=== PATIENT | female | born 1970 | race Caucasian/White ===

== ENCOUNTER 2024-12-26 11:39 | Inpatient (IN) | payer MEDICAID, SELFPAY ==
[2024-12-26] VITALS (13 sets, daily range): BP systolic 124–175; BP diastolic 58–94; PULSE 77–110; RESP 16–38; TEMP 36.3–36.5; O2SAT 94–100; BMI 32.3
--- NOTE | ~2024-12-26 | XR_ITS ---
EXAMINATION: XR chest 1V portable DATE: 12/26/2024 12:42 INDICATION: Chronic worsening shortness of breath TECHNIQUE: frontal view of the chest was obtained. COMPARISON: None FINDINGS: The lungs are clear with no focal airspace opacities, pulmonary edema, pleural effusion or pneumothor ax. The cardiomediastinal silhouette is normal. IMPRESSION: 1. No acute cardiopulmonary disease. Reviewed, dictated and finalized at location A.
--- NOTE | ~2024-12-26 | CT_ITS ---
Clinical Indication: Pulmonary embolus CT Scan of the Chest with Contrast: Technique: Contiguous sections were acquired throughout the chest after intravenous administration of 100 cc of Omnipaque 350. Dose reduction technique was used on this scan by utilizing automated expos ure control and iterative reconstruction technique. The dose-length product (DLP) was 279.68 mGy-cm. Findings: There is no evidence of any significant mediastinal, hilar or axillary lymphadenopathy. There is no f illing defect in the pulmonary arterial tree to suggest pulmonary embolus. There is no evidence of ao rtic dissection or aneurysm. There is no evidence of pleural or pericardial effusion. The lungs are clear. No pulmonary nodules or infiltrates are noted. Images through the upper abdomen reveal no abnormalities.. There is multilevel degenerative disc narr owing and multilevel mild loss of height in the mid to lower thoracic spine, suggestive of possible S cheuermann's disease. Impression: No evidence of pulmonary embolus, aortic dissection, or aortic aneurysm. Clear lungs. Osseous findings, as above. Reviewed, dictated and finalized at location . Impression: No evidence of pulmonary embolus, aortic dissection, or aortic aneurysm. Clear lungs. Osseous findings, as above.
--- NOTE | 2024-12-26 11:51 | ECG_ITS ---
Test Date: 2024-12-26 12:07:39 Measurements Intervals [place] Rate: P: 0 CA: 0 QRS: 0 QRSD: 0 T: 0 QT: 0 QTc: 0 Interpretive Statements SINUS RHYTHM WITH VENTRICULAR COUPLET BORDERLINE ST ABNORMALITY- ANTEROLATERAL LEADS BASELINE ARTIFACT- I, II, III, AVR, AVL, AVF BORDERLINE ECG No previous ECG available for comparison Electronically Signed On 12-26-2024 19:22:27 CDT by Kendell Kyle D.O.
[2024-12-26 13:38] LABS: Basophils Absolute Auto 0.1 K/mm3 (0.0-0.1); Basophils Percent Auto 0.4 % (0.2-1.2); Eosinophils Absolute Auto 0.8 K/mm3 (0-0.3); Eosinophils Percent Auto 5.6 % (0-4.4); Hemoglobin 14.6 g/dL (12.0-15.0); Immature Granulocyte Absolute 0.11 K/mm3 (0.00-0.031); Immature Granulocyte Percent A 0.8 % (0-0.5); Lymphocytes Absolute Auto 2.43 K/mm3 (0.9-3.2); Lymphocytes Percent Auto 16.9 % (18.3-44.2); Mean Corpuscular HGB Conc 33.2 g/dl (32-36); Mean Corpuscular Hemoglobin 30.9 pg (26-34); Mean Corpuscular Volume 93.2 fl (80-100); Mean Platelet Volume 12.3 fl (7.4-10.4); Monocytes Absolute Auto 0.8 K/mm3 (0.1-0.6); Monocytes Percent Auto 5.8 % (2.6-8.5); Neutrophils Absolute Auto 10.1 K/mm3 (1.3-6.7); Neutrophils Percent Auto 70.5 % (45.5-73.1); Platelet Count Result 285 k/mm3 (150-375); Red Blood Count 4.72 M/mm3 (4.2-5.4); Red Cell Distribution Width 14.3 % (11.5-14.5); White Blood Count 14.4 K/mm3 (4.5-10.0)
--- NOTE | 2024-12-26 13:43 | ED_ITS ---
HPI - URI/Sore Throat General Chief Complaint: Upper Respiratory Infection Stated Complaint: Coughing, shortness of breath-worse since PM Time Seen by Provider: 12/26/24 11:54 Source: patient Mode of arrival: ambulatory Limitations: no limitations History of Present Illness HPI Narrative: 54 years old white female came with shortness of breath which been going for the last 2 months. Patient is scheduled to be seen by core winding operator this month. Patient from [facility] he came over to visit, shortness of breath got worse 1 week ago, worse with any activity, nothing make it better. Patient is tobacco dependent, hypertension, hyperlipidemia, history of edema lower extremities. Currently on Lasix. She denies any fever, chills, nausea, vomiting. Related Data Home Medications ?Medication ?Instructions ?Recorded ?Confirmed ?Last Taken ?Type albuterol 90 mcg/actuation aerosol 90 mcg inhalation QID PRN 12/26/24 12/26/24 12/26/24 History inhaler shortness of breath benzonatate 100 mg capsule 100 mg PO TID PRN cough 12/26/24 12/26/24 12/26/24 History ibuprofen 800 mg tablet (IBU) 800 mg PO TID PRN pain 12/26/24 12/26/24 12/26/24 History levothyroxine 112 mcg tablet 112 mcg PO DAILY 12/26/24 12/26/24 12/26/24 History (Euthyrox) Allergies Allergy/AdvReac Type Severity Reaction Status Date / Time No Known Allergies Allergy Verified 12/26/24 11:42 Review of Systems 2 Review of Systems: All systems reviewed & are unremarkable except as noted in HPI and below PMFSH Social History Social History Smoking status: Current every day smoker Tobacco type: cigarettes Alcohol intake: never Substance use: never Substance use type: does not use Do You Feel Safe in your Home?: Yes Lack of Transportation: No Lack of Food: Never True Current Housing: I Have Housing Concerned About Future Housing: No Difficulty Paying Gas/Electric Bills: No Difficulty Paying for Meds: No Currently Unemployed: No Education: Grade School Difficulty w/ Childcare or Family Care: No Spiritual care concerns: No Exam 2 Narrative: General appearance: Well-developed, well-nourished Skin: Normal color Head: Normocephalic, nontraumatic Eyes: Clear conjunctiva ENT: Oropharynx normal, ears normal, nose normal Neck: Supple, nontender Chest and respiratory: Airway patent, labored breathing, diminution of air entry bilaterally, scattered wheezing and rhonchi bilaterally Heart: Tachycardia Abdomen: Soft, nontender, no organomegaly, quiet bowel sounds Vascular: Normal peripheral pulses, normal capillary refill. Musculoskeletal: Normal range of motion, nontender back Neurologic: Alert and oriented ?3, INTERIOR DESIGN PROJECT MANAGER is normal as tested, no gross motor deficit Course Vital Signs Vital signs: Vital Signs Temperature 36.3 C L 12/26/24 12:00 Pulse Rate 82 12/26/24 12:00 Respiratory Rate 16 12/26/24 12:00 Blood Pressure 150/70 H 12/26/24 12:00 Pulse Oximetry 96 12/26/24 12:00 Oxygen Delivery Room Air 12/26/24 12:00 Temperature 36.3 C L 12/29/24 04:57 Pulse Rate 76 12/29/24 08:00 Respiratory Rate 16 12/29/24 08:00 Blood Pressure 126/61 12/29/24 04:57 Pulse Oximetry 97 12/29/24 08:00 Oxygen Delivery Room Air 12/29/24 08:00 Oxygen Flow Rate 2 12/26/24 17:02 Fraction of Inspired Oxygen 21 12/29/24 08:00 MDM - URI/Sore Throat MDM Narrative Medical decision making narrative: Patient presents with shortness of breath, Vital signs are stable Physical examination showing a patient with labored breathing, diminution of air entry bilaterally scattered rhonchi and wheezing bilaterally Differential diagnosis include asthma exacerbation, COPD exacerbation, congestive heart failure, pneumonia, pleural effusion Blood workup today includes CBC, CMP, troponin, pro BMP showed WBC 14.4, otherwise within normal limit Chest x-ray showed no acute abnormalities EKG on arrival showed normal sinus rhythm at 85 beats per minute, nonspecific ST T-wave abnormality Diagnosis: COPD exacerbation Admit to hospitalist Medical Records Attestation: I reviewed the patient's medical records. Lab Data Attestation: I reviewed the patient's lab results. 12/29/24 04:42 12/29/24 04:42 Labs: Lab Results 12/26/24 12/26/24 12/27/24 Range/Units 13:32 14:08 04:27 WBC 14.4 H 24.9 H (4.5-10.0) K/mm3 RBC 4.72 4.80 (4.2-5.4) M/mm3 Hgb 14.6 14.8 (12.0-15.0) g/dL Hct 44.0 45.5 (37.0-47.0) % MCV 93.2 94.8 (80-100) fl MCH 30.9 30.8 (26-34) pg MCHC 33.2 32.5 (32-36) g/dl RDW 14.3 14.1 (11.5-14.5) % Plt Count 285 294 (150-375) k/mm3 MPV 12.3 H 13.7 H (7.4-10.4) fl Immature Gran % (Auto) 0.8 H (0-0.5) % Neut % (Auto) 70.5 (45.5-73.1) % Lymph % (Auto) 16.9 L (18.3-44.2) % [place] % (Auto) 5.8 (2.6-8.5) % Eos % (Auto) 5.6 H (0-4.4) % Baso % (Auto) 0.4 (0.2-1.2) % Lymph # (Auto) 2.43 (0.9-3.2) K/mm3 [place] # (Auto) 0.8 H (0.1-0.6) K/mm3 Eos # (Auto) 0.8 H (0-0.3) K/mm3 Baso # (Auto) 0.1 (0.0-0.1) K/mm3 Abs Immat Gran (auto) 0.11 H (0.00-0.031) K/mm3 Absolute Neuts (auto) 10.1 H (1.3-6.7) K/mm3 Absolute Nucleated RBC 0.000 (0.0-0.012) K/mm3 Nucleated RBC % 0.0 (0.0-0.2) % % Immature Plt Fraction 15.3 H (0.9-11.2) % PT 12.5 (11.1-14.7) Seconds INR 0.9 APTT 27.9 (22.3-36.8) Seconds D-Dimer 0.45 (<0.48) ug/mL Sodium 139 (137-145) mmol/L Potassium 4.2 (3.4-5.0) mmol/L Chloride 106 (98-107) mmol/L Carbon Dioxide 26 (22-30) mmol/L Anion Gap 7 (4-12) mmol/L BUN 8 (7-17) mg/dL Creatinine 0.59 L (0.7-1.0) mg/dL Estim Creat Clear Calc Not Reportable Estimated GFR > 60 (59 - ) Glucose 108 (65-110) mg/dL Calcium 9.4 (8.4-10.2) mg/dL Magnesium 1.9 (1.6-2.3) mg/dL Total Bilirubin 0.5 0.2 (0.2-1.3) mg/dL Direct Bilirubin 0.0 (0-0.3) mg/dL AST 27 31 (14-36) U/L ALT 27 36 H (6-35) U/L Alkaline Phosphatase 100 96 (38-126) U/L Troponin I < 0.012 (0.000-0.034) ng/mL NT-Pro-B Natriuret Pep 73 (19.9-100) pg/mL Total Protein 8.0 8.0 (6.3-8.2) g/dL Albumin 4.3 4.3 (3.5-5.1) g/dL Influenza A (RT-PCR) Negative (Negative) Influenza B (RT-PCR) Negative (Negative) RSV (RT-PCR) Negative (Negative) SARS-CoV-2 RNA (RT-PCR) Negative (Negative) 12/27/24 12/28/24 Range/Units 04:30 04:45 WBC 34.7 H (4.5-10.0) K/mm3 RBC 4.16 L (4.2-5.4) M/mm3 Hgb 12.9 (12.0-15.0) g/dL Hct 40.0 (37.0-47.0) % MCV 96.2 (80-100) fl MCH 31.0 (26-34) pg MCHC 32.3 (32-36) g/dl RDW 14.4 (11.5-14.5) % Plt Count 274 (150-375) k/mm3 MPV 13.1 H (7.4-10.4) fl Immature Gran % (Auto) (0-0.5) % Neut % (Auto) (45.5-73.1) % Lymph % (Auto) (18.3-44.2) % [place] % (Auto) (2.6-8.5) % Eos % (Auto) (0-4.4) % Baso % (Auto) (0.2-1.2) % Lymph # (Auto) (0.9-3.2) K/mm3 [place] # (Auto) (0.1-0.6) K/mm3 Eos # (Auto) (0-0.3) K/mm3 Baso # (Auto) (0.0-0.1) K/mm3 Abs Immat Gran (auto) (0.00-0.031) K/mm3 Absolute Neuts (auto) (1.3-6.7) K/mm3 Absolute Nucleated RBC (0.0-0.012) K/mm3 Nucleated RBC % (0.0-0.2) % % Immature Plt Fraction 14.0 H (0.9-11.2) % PT (11.1-14.7) Seconds INR APTT (22.3-36.8) Seconds D-Dimer (<0.48) ug/mL Sodium 138 140 (137-145) mmol/L Potassium 3.9 3.8 (3.4-5.0) mmol/L Chloride 100 107 (98-107) mmol/L Carbon Dioxide 28 24 (22-30) mmol/L Anion Gap 10 9 (4-12) mmol/L BUN 17 17 (7-17) mg/dL Creatinine 0.70 0.73 (0.7-1.0) mg/dL Estim Creat Clear Calc Not Reportable Not Reportable Estimated GFR > 60 > 60 (59 - ) Glucose 238 H 126 H (65-110) mg/dL Calcium 9.9 9.0 (8.4-10.2) mg/dL Magnesium (1.6-2.3) mg/dL Total Bilirubin 0.2 (0.2-1.3) mg/dL Direct Bilirubin (0-0.3) mg/dL AST 23 (14-36) U/L ALT 26 (6-35) U/L Alkaline Phosphatase 77 (38-126) U/L Troponin I (0.000-0.034) ng/mL NT-Pro-B Natriuret Pep (19.9-100) pg/mL Total Protein 7.0 (6.3-8.2) g/dL Albumin 4.0 (3.5-5.1) g/dL Influenza A (RT-PCR) (Negative) Influenza B (RT-PCR) (Negative) RSV (RT-PCR) (Negative) SARS-CoV-2 RNA (RT-PCR) (Negative) Imaging Data Radiologist's impression: Impressions Chest X-Ray 12/26/24 12:58 IMPRESSION: 1. No acute cardiopulmonary disease. ECG Data EKG #1: Attestation: I personally reviewed and interpreted this ECG as follows: ECG completion date: 12/26/24 Interpretation: Normal sinus rhythm at 85 beats per minute, otherwise normal EKG Critical Care Time Critical Care Time Critical Care Time: No Discharge Plan Discharge Clinical Impression: COPD (chronic obstructive pulmonary disease) Patient Disposition: Still a Patient Condition: Stable
[2024-12-26 13:48] LABS: Alanine Aminotransferase 27 U/L (6-35); Albumin Level 4.3 g/dL (3.5-5.1); Alkaline Phosphatase 100 U/L (38-126); Anion Gap 7 mmol/L (4-12); Aspartate Amino Transferase 27 U/L (14-36); Bilirubin,Total 0.5 mg/dL (0.2-1.3); Blood Urea Nitrogen 8 mg/dL (7-17); Calcium 9.4 mg/dL (8.4-10.2); Carbon Dioxide 26 mmol/L (22-30); Chloride 106 mmol/L (98-107); Estimated Glomerular Filt Rate > 60; Glucose 108 mg/dL (65-110); Potassium 4.2 mmol/L (3.4-5.0); Sodium 139 mmol/L (137-145)
[2024-12-26] MEDS: methylPREDNISolone SOD SUCC 125 MG VIAL IV PUSH (14:12)
[2024-12-26 14:13] LABS: NT Pro B Type Natriuretic Pept 73 pg/mL (19.9-100); Troponin I < 0.012 ng/mL (0.000-0.034)
[2024-12-26] MEDS: FUROSEMIDE INJ 40 MG/4 ML VIAL IV PUSH (14:13)
[2024-12-26] MEDS: IPRATROPIUM BR 0.02% INH SOLN 0.5 MG/2.5 ML VIAL 1 MG INHALATION (14:20)
[2024-12-26] MEDS: ALBUTEROL SULFATE NEB 2.5 MG/3 ML INH 10 MG INHALATION (14:20)
--- NOTE | 2024-12-26 14:22 | PC.NURSE ---
Pt refused to wear bipap. ERP aware.
[2024-12-26 14:33] LABS: Magnesium 1.9 mg/dL (1.6-2.3)
[2024-12-26 14:37] LABS: INR 0.9; Prothrombin Time 12.5 Seconds (11.1-14.7)
[2024-12-26 14:38] LABS: Partial Thromboplastin Time 27.9 Seconds (22.3-36.8)
[2024-12-26 14:41] LABS: D Dimer 0.45 ug/mL (<0.48)
[2024-12-26 14:47] LABS: Influenza A QL RT-PCR Negative (Negative); Influenza B QL RT-PCR Negative (Negative); RSV RNA, RT-PCR Negative (Negative); SARS-CoV-2 RNA PCR Negative (Negative)
[2024-12-26] MEDS: NICOTINE (*PBKC) 21 MG PATCH 1 PATCH TRANSDERM (15:50)
--- NOTE | 2024-12-26 17:45 | ADMGEN ---
This patient, Kanwal Stearns, was admitted to Medical Room 242-. Patient/family oriented to hospital policies and general routines including ID bracelet, bed and alarms, visiting hours, pain management, procedures, bathroom and other care routines, personal items, smoking policy, room service/diet, and visiting hours. Information on how to activate the Rapid Response Team has been discussed. Patient/Family are encouraged to report perceived risks to care and to ask questions if they do not understand what they are told or what they should do.
--- OUTSIDE RECORDS SUMMARY | 2024-12-26 18:01 | XMS_ITS | Continuity of Care Document ---
Author Organization [facility] Address [address] [place] [address] Phone Care Team Providers Care Client Relation Specialist Name Role Phone Unavailable Unavailable Unavailable Medications Medication Instructions Dosage Effective Dates (start - stop) Status Comments metronidazole 500 mg Tab FLAGYL 500 MG TABLET<><> 1 TAB by mouth (PO) twice a day.<><> As directed by physician.<> Avoid alcohol.<><>DISPENS E: <>REFILLS: 0<>Provider: LYDIA AGUERO NP<> SIGNATURE ON FILE <><> PLEASE HOLD FOR - Active nicotine 21 mg/24 hr daily Patch NICOTINE 21 MG/24HR PATCH # 30<><> apply to scalp once a day.<><> As directed by physician.<><>DISPE NSE: 30 day supply.<>REFILLS: 0<>Provider: LYDIA AGUERO NP<> SIGNATURE ON FILE <><> PLEASE HOLD F - Active Zoloft 25 mg Tab ZOLOFT 25 MG TABLET<><> 1 TAB by mouth (PO) every day.<><><>DISPENSE: 30 day supply.<>REFILLS: 4<>Provider: PRATIMA CAPPS NP<>Health [facility]: [facility]<><> - No Longer Active Procedures Procedure Date CYTP C/V AUTO THIN LYR PREPJ SCR SYS PHY S CHYLMD TRACH, DNA, AMP PROBE ANTIBODY; HIV-1 URNLS DIP STICK/TABLET RGNT AUTO W/O MORGAN PERIODIC COMPREHENSIVE PREVENTIVE MED RE E/M; ESTABLISHED PATIENT; 18-39 CULTURE, BACTERIAL; QUANTITATIVE COLONY COUNT, URINE LIPID PANEL N.GONORRHOEAE, DNA, AMP PROB SYPHILIS TEST; QUALITATIVE (EG, VDRL, RP R, ART) Debridement, Full Mouth Comprehensve oral evaluation Oral hygiene instruction Dental bitewings two films OFFICE OUTPT EST 10 MIN CYTP C/V AUTO THIN LYR PREPJ SCR SYS PHY S N.GONORRHOEAE, DNA, AMP PROB HEPATITIS C ANTIBODY; IAAD EIA HEP B SURF AG ANTIBODY; HIV-1 AND HIV-2, SINGLE ASSAY PERIODIC COMPREHENSIVE PREVENTIVE MED RE E/M; ESTABLISHED PATIENT; 1839 CHYLMD TRACH, DNA, AMP PROBE COLLECTION OF VENOUS BLOOD BY VENIPUNCTU RE SYPHILIS TEST; QUALITATIVE (EG, VDRL, RP R, ART) OFFICE OUTPT EST 10 MIN IAAD EIA HEP B SURF AG SYPHILIS TEST; QUALITATIVE (EG, VDRL, RP R, ART) CYTP SLIDES C/V MNL SCR PHYS CHYLMD TRACH, DNA, AMP PROBE HEPATITIS C ANTIBODY; GONADOTROPIN; FOLLICLE STIMULATING HORMO NE (FSH) N.GONORRHOEAE, DNA, AMP PROB OFFICE OUTPT EST 10 MIN Results Test Name Date and Time Measure Units Reference Range Abnormal Flag Status Comments Panel Description: SUREPATH RFX HPV Final REPORT STATUS: 2007 09:42:0 0 FINAL Final CLINICAL INFORMATION: 2007 09:42:0 0 Final LMP: 2007 09:42:0 0 Final NA PREV. PAP: 2007 09:42:0 0 Final NA PREV. BX: 2007 09:42:0 0 Final NA SOURCE: 2007 09:42:0 0 Final Cervix, Endocervix STATEMENT OF ADEQUACY: 2007 09:42:0 0 Final Satisfactory f or evaluation.Endoce rvical/transforma tion zone componentpresent. Age and/or menstrual status not provided INTERPRETATION/R ESULT: 2007 09:42:0 0 Final Negative for intraepithelial lesion or malignancy. COMMENT: 2007 09:42:0 0 Final Based on the cytology result, reflex High RiskHPV DNA testing was not performed. SLD EDUCATIONAL AIDE : 2007 09:42:0 0 Final PONCE, CT(ASCP) REVIEW SLD EDUCATIONAL AIDE : 2007 09:42:0 0 Final MLK, CT(ASCP) Panel Description: LIPID PANEL Final TRIGLYCERIDES 2007 19:40:0 0 113 mg/dL <150 N Final Panel Description: Not Available Final CHOLESTEROL, TOTAL 2007 19:40:0 0 228 mg/dL 125-200 H Final Panel Description: Not Available Final HDL CHOLESTEROL 2007 19:40:0 0 57 mg/dL > OR = 40 N Final Panel Description: Not Available Final LDL-CHOLESTEROL 2007 19:40:0 0 148 mg/dL (calc) <130 H Final DESIRABLE RANGE <100 MG/DL FOR PATIENTS WITH CHD ORDIABETES AND <70 MG/DL FOR DIABETIC PATIENTS WITHKNOWN HEART DISEASE. Panel Description: Not Available Final CHOL/HDLC RATIO 2007 19:40:0 0 4.0 (calc) < OR = 5.0 N Final Panel Description: CHLAMYDIA/N. GONORRHOEAE RNA, TMA Final C. TRACHOMATIS RNA, TMA 2007 19:40:0 0 Not Detected Final Reference range : Not Detected N. GONORRHOEAE RNA, TMA 2007 19:40:0 0 Not detected Final Reference range : Not Detected Panel Description: HIV 1/2 EIA ANTIBODY SCREEN W /REFLEXES Final HIV 1/2 EIA AB SCREEN 2007 19:40:0 0 NON-REACTI VE NON-REACTIV E N Final A NON-REACTIVE HIV 1/2 ANTIBODY RESULT DOES NOT EXCLUDE HIV INFECTION SINCE THE TIME FRAME FOR SEROCONVERSION IS VARIABLE. IF ACUTE HIV INFECTION IS SUSPECTED, ANTIBODY RETESTING AND NUCLEIC ACID AMPLIFICATION (HIV DNA/RNA) TESTING IS RECOMMENDED. Panel Description: RPR (DX) W/REFL TITER AND CONFIRMATORY TESTING Final RPR (DX) W/REFL TITER AND CONFIRMATORY TESTING 2007 19:40:0 0 NON-REACTI VE NON-REACTIV E N Final Advance Directives Directive Yes / No Effective Date File Name No Information Encounters Encounter Description Practice Location Reason(s) For Visit Diagnoses Date Provider Providers Copied on Encounter [facility], [address], [place], [place], [id number] , [place] tel: [phone] No Information 2 8 No Information PERIODIC COMPREHENSIVE PREVENTIVE MED REE/M; ESTABLISHED PATIENT; 18-39 [facility], [address], [place], [place], [address] , [place] tel: [phone] [facility] ROUTINE INSTRUMENT TESTER EXAMINATIONVAGIN ITIS NOS 2- 8 No Information [facility], [address], [place], [place], [address] , [place] tel: [phone] [facility] DENTAL EXAMINATION 4-200 8 No Information OFFICE OUTPT EST 10 MIN [facility], [address], [place], [place], [id number] , [place] tel: [phone] [facility] OSTEOPOROSIS NOS -200 7 No Information PERIODIC COMPREHENSIVE PREVENTIVE MED REE/M; ESTABLISHED PATIENT; 18-39 [facility], [address], [place], [place], [address] , [place] tel: [phone] [facility] ROUTINE INSTRUMENT TESTER EXAMINATION 6-200 7 No Information OFFICE OUTPT EST 10 MIN [facility], [address], [place], [place], [address] , [place] tel: [phone] [facility] VAGINITIS NOSOSTEOPOROSIS NEC 5-200 6 No Information OFFICE OUTPT EST 10 MIN [facility], [address], [place], [place], [address] , [place] tel: [phone] [facility] ROUTINE INSTRUMENT TESTER EXAMINATION 1-200 6 No Information Family History Family Member Type Diagnosis Age At Onset No Information Payers Payer name Insurance type Covered constitution party ID Authoriza tion(s) No Information Social History Type Description Quantity Date Captured Comments Sex Female Smoking Status No Information Chief Complaint And Reason For Visit No Information Reason For Referral Reason For Referral No Information History Of Present Illness Encounter Date Complaint History Of Prese nt Illness No Information Functional Status Date Functional Assessmen t No Information Instructions Date Instruction Additional Infor mation No Information Assessments Type Assessment Date No Information Patient Care Teams Name Effective Dates (start - stop) Status Members No Information
--- OUTSIDE RECORDS SUMMARY | 2024-12-26 18:01 | XMS_ITS | Patient Health Record ---
Author Organization [facility] Address [address] [place] [address] Care Team Providers Care Millwright Apprentice Name Role Phone Luigi Cristy REESE Primary Care Provider Evelyn ho Reason For Referral No Information Plan Of Treatment No Information Insurance Providers Payer Name Payer Address Payer Phone Subscriber Number Group Number Insured Name Patient Relationship to Insured Coverage Start Date Coverage End Date [employer] [facility] [address] [place] [address] [id number] AMANDA SALDANA Self - patient is the insured
--- OUTSIDE RECORDS SUMMARY | 2024-12-26 18:01 | XMS_ITS ---
Author Organization [facility] Address [address] [place] [address] Care Team Providers Care Fur Cutting Machine Operator Name Role Phone Luigi HUGH Cristy Primary Care Provider Augusto Yun Unavailable [phone] REASON FOR VISIT declined Encounters Encounter Location Date Provider Diagnosis [facility] [address] [place] [address] 09/03/2023 Augusto Leija Plan Of Treatment No Information Progress Notes * SHANA, AMANDADOB: [birth year] (53 yo F)Acc No.[id number]:09/03/2023 Patient: AMANDA FIGUEROA :1970 A ge:53 Y S ex:Female Address:[address] [place] [id number] * true * Date: Generated for Levon barone/Leo/eTransmitting on: 0 12/26/2024 06:01 PM CDT
--- OUTSIDE RECORDS SUMMARY | 2024-12-26 18:01 | XMS_ITS | Clinical Summary ---
Author Organization [facility] Address [address] [place] [address] Care Team Providers Care Retail Experience Specialist Name Role Phone Cristy Meyers SUSPECT ARTIST SUPERVISOR-STARBUCKS CLERK Primary Care Provider Source Comments [facility]non-owned Affiliates and Associated Physician Practices is amultiple site organization consisting of ambulatory clinics and hospital sitesin [place], [place], [place] and [place]. This disclosure is being madepursuant to the Care Everywhere program and may not contain all information available regarding this patient. Last updated 18.[facility] Allergies No known active allergies Medications * Be aware that medications may not be up to date on this document. Alwaysverify current medications with the patient. albuterol HFA (PROVENTIL;PONCE TOLIN;PROAIR) 108 (90 BASE) MCG/ACT inhaler Inhale 2 Puffs by mouth every 4 hours as needed for Shortness of Breath or Wheezing 1 Inhaler 1 7 Active acetaminophen (TYLENOL) 325 MG tablet Take 2 tablets by mouth every 4 hours as needed Maximum allowable Acetaminophen amount = 4 Grams (4000 mg) / 24 hours. 8 Active Aspirin-Acetam inophen-Caffei ne (EXCEDRIN PO) Take 2 tablets by mouth once daily as needed Active levothyroxine (SYNTHROID) 150 MCG tabletIndicati ons:Hypothyroi dism due to acquired atrophy of thyroid Take 1 tablet by mouth once daily Start on 06/16/19 90 tablet 3 9 Active Hospital, Clinic, or Other Facility Administered Medication Ordered Dose Route Frequency Start Date End Date Status cyanocobalamin (VITAMIN B-12) injection 1,000 mcgIndications:Vitamin B12 deficiency 1000 mcg IM EVERY 7 DAYS 11/26/2017 Active Active Problems Problem Noted Date Diagnosed Date Overweight (BMI 25.0-29.9) 08/04/2019 Vitamin B12 deficiency 12/02/2018 Vitamin D deficiency 12/02/2018 Hypothyroidism 05/22/2018 Anemia 05/22/2018 Idiopathic pericardial effusion 09/12/2017 Assessment & Plan (09/12/2017 12:02 PM BELT WEAVER): Sp pericardiocentesis. 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 (A FLURIA, FLUZONE QUADRIVALENT; 6MO+) (IIV4) 05/22/2018 INFLUENZA VACCINE, QUADR. (F LUZONE; FLULAVAL; FLUARIX; AFLURIA QUADRIVALENT; 6MO+), 0.5 ML (IIV4) 06/29/2019 PNEUMOCOCCAL PPSV23 06/29/2019 Pneumococcal Pcv13 Conj 05/22/2018 TD VACCINE 12/08/2014 Family History Medical History Relation Name Comments Negative Family History Brother 1 ADHD Father Alcohol abuse Father Other Father pancreas diseas e Negative Family History Mother Negative Family History Sister Cancer - Breast Neg Hx Relation Name Status Comments Brother 1 Alive Brother 2 Alive Brother 3 Alive Brother 4 Alive Father Mother Alive Sister Social History Tobacco Use Types Packs/Day Years Used Date Smoking Tobacco: Every Day Cigarettes 0.5 39.3 Started: 09/12/1985 Smokeless Tobacco: Never Tobacco Cessation:Counseling Given: No Alcohol Use Standard Drinks/Week Comments No 0 (1 standard drink = 0.6 oz pur e alcohol) Comments No Sex and Gender Information Value Date Recorded Sex Assigned at Not on file Legal Sex Female 5:20 PM CDT Gender Identity Not on file Sexual Orientation Not on file Last Filed Vital Signs Vital Sign Reading Time Taken Comments Blood Pressure 102/64 09/29/2019 3:13 PM BELT WEAVER Pulse 68 09/29/2019 3:13 PM BELT WEAVER Temperature 36.6 C (97.9 F) 09/29/2019 3:13 PM BELT WEAVER Respiratory Rate 16 09/29/2019 3:13 PM BELT WEAVER Oxygen Saturation 97% 09/29/2019 3:13 PM BELT WEAVER Inhaled Oxygen Concentration - - Weight 53.7 kg (118 lb 6 oz) 09/29/2019 3:13 PM BELT WEAVER Height 144.8 cm (4' 9) 09/29/2019 3:13 PM BELT WEAVER Body Mass Index 25.62 09/29/2019 3:13 PM BELT WEAVER Plan of Treatment Health Maintenance Due Date Last Done Comments COLOGUARD (AGES 45-75) - COLON CA SCREENING 1972 COLON MONITORING 1972 COLONOSCOPY - COLON CA SCREENING 1972 CT COLONOGRAPHY - COLON CA SCREENING 1972 Colorectal Cancer Screening 1972 FIT - COLON CA SCREENING 1972 FLEX SIG - COLON CA SCREENING 1972 HIV SCREENING 1987 HEPATITIS C SCREENING 06/01/1990 HEPATITIS B VACCINE (1 of 3 - 19+ 3-dose series) 1991 SCREENING FOR DIABETES 04/14/2022 9, 11/03/2017, 09/13/2017, Additional history exists ZOSTER VACCINE (1 of 2) 2022 MAMMOGRAM 09/13/2022 09/13/2020 LIPID TESTING 11/03/2022 11/03/2017 COVID-19 VACCINE ( - season) 2024 PNEUMOCOCCAL VACCINE 50+ (3 of 3 - PCV20 or PCV21) 06/29/2024 06/29/2019, 05/22/2018 DEPRESSION SCREENING 07/28/2024 DTAP/TDAP/TD VACCINES (2 - Td or Tdap) 12/08/2024 12/08/2014 INFLUENZA VACCINE (Season Ended) 2025 06/29/2019, 05/22/2018 HIB VACCINE Aged Out No longer eligi ble based on patient's age to complete this topic HPV VACCINE Aged Out No longer eligi ble based on patient's age to complete this topic MENINGOCOCCAL (Group B) VACCINE SHARED DECISION-MAKING Aged Out No longer eligible based on patient's age to complete this topic MENINGOCOCCAL GROUPS A/C/Y/W VACCINE Aged Out No longer eligible based on patient's age to complete this topic Procedures Procedure Name Priority Date/Time Associated Diagnosis Comments MAMMO BILAT DIAGNOSTIC Routine 10:02 AM BELT WEAVER Breast pain COMPREHENSIVE METABOLIC PANEL STAT 04/14/2019 8:05 PM CDT LIPID PROFILE Routine 11/03/2017 9:42 AM CDT Epigastric pain Toney syndrome Tobacco abuse 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 Enlarged thyroid from Last 3 Months or Most Recently Relevant to Health Maintenance Results * MAMMO BILAT DIAGNOSTIC (09/13/2020 10:02 AM BELT WEAVER) Anatomical Region Laterality Modality Breast Bilateral Mammography 09/13/2020 10:0 7 AM BELT WEAVER Narrative 09/13/2020 10:14 AM BELT WEAVER DIGITAL BILATERAL DIAGNOSTIC MAMMOGRAMS WITH CAD 3-D TOMOSYNTHESIS DATE: 09/13/2020 PREVIOUS EXAM DATE: 04/27/2014, 04/01/2013, 12/30/2011 INDICATION: Lateral right breast pain TECHNIQUE:Bilateral CC and MLO with 3-D digital tomosynthesis, right ML with 3-D tomosynthesis, right X CCM, left inferior MLO CAD was utilized. TECHNOLOGIST: ESM TISSUE DENSITY:The breasts are heterogeneously dense, which may obscure small masses. FINDINGS:No suspicious masses or microcalcifications are seen. No suspicious new findings have developed since prior examination. ASSESSMENT:Negative, BI-RADS 1. RECOMMENDATIONS:Continue screening mammography on schedule Clinical follow-up The above findings should be correlated with physical examination. A relatively nonspecific study should not preclude additional evaluation if suspicious findings are present clinically. An [employer] [facility] utilizes [employer] as a reminder system to notify patients of their next recommended mammogram. us Cristy Meyers SUSPECT ARTIST SUPERVISOR-STARBUCKS CLERK MAMMO ORDERABLES Final Result * (ABNORMAL) COMPREHENSIVE METABOLIC PANEL (04/14/2019 8:05 PM CDT) Sodium 142 136 - 145 mmol/L 04/14/2019 8:37 PM CDT [facility] Potassium 3.7 3.5 - 5.1 mmol/L 04/14/2019 8:37 PM CDT [facility] Chloride 104 98 - 107 mmol/L 04/14/2019 8:37 PM CDT [facility] CO2 27 22 - 29 mmol/L 04/14/2019 8:37 PM CDT [facility] Anion Gap 11 9 - 16 mmol/L 04/14/2019 8:37 PM T [facility] Glucose 91 70 - 105 mg/dL 04/14/2019 8:37 PM T [facility] BUN 12 9.8 - 20.1 mg/dL 04/14/2019 8:37 PM T [facility] Creatinine 0.87 0.57 - 1.11 mg/dL 04/14/2019 8:37 PM T [facility] BUN/Creatinine Ratio 13.8 11.2 - 18.1 04/14/2019 8:37 PM T [facility] Calcium 9.7 8.4 - 10.2 mg/dL 04/14/2019 8:37 PM T [facility] Protein Total 7.6 6.4 - 8.3 gm/dL 04/14/2019 8:37 PM T [facility] Albumin 4.2 3.5 - 5.0 gm/dL 04/14/2019 8:37 PM T [facility] ALT 16 0 - 55 U/L 04/14/2019 8:37 PM T [facility] AST 15 5 - 34 U/L 04/14/2019 8:37 PM T [facility] Alkaline Phosphatase 76 40 - 150 U/L 04/14/2019 8:37 PM T [facility] Bilirubin Total 0.1(L) 0.2 - 1.2 mg/dL 04/14/2019 8:37 PM T [facility] Calcium Adjusted 9.54 8.4 - 10.2 mg/dL 04/14/2019 8:37 PM CDT [facility] Globulin Total 3.4 1.3 - 4.7 gm/dL 04/14/2019 8:37 PM T [facility] Albumin/Globulin Ratio 1.2 1.1 - 2.2 04/14/2019 8:37 PM CDT [facility] Osmolality Calculated 273 260 - 284 mOsm/kg 04/14/2019 8:37 PM CDT [facility] eGFR by MDRD >60 >60 mL/min/1.7 3m2 04/14/2019 8:37 PM CDT [facility] eGFR by MDRD >60 >60 mL/min/1.7 3m2 04/14/2019 8:37 PM CDT [facility] Blood BLOOD SPECIMEN / Unknown Venipuncture / Unknown 04/14/2019 8:05 PM CDT 04/14/2019 8:05 PM CDT Narrative [facility] - 04/14/2019 8:37 PM CDT ADA Comment: The [place] [employer] recommends a fasting glucose concentration of 99 mg/dL as the upper limit of normal. Note:EGFR Reference Ranges have been established for adults between the ages of 18 and 70. STAGES OF CHRONIC KIDNEY DISEASE Stage Description EGFR 1. Kidney damage with normal or increased EGFR > or =90 mL/min/1.73 m 2. Kidney damage with mildly decreased EGFR 60-89 mL/min/1.73 m 3. Moderately decreased EGFR 30-59 mL/min/1.73 m 4. Severely decreased EGFR 15-29 mL/min/1.73 m 5. Kidney Failure EGFR <15 mL/min/1.73 m us Miriam Almeida MD LAB - CHEMISTRY ORDERABLES Final Result [facility] [address] [phone] * LIPID PROFILE (11/03/2017 9:42 AM CDT) Pathologist [facility] Cholesterol 186 <200 mg/dL 11/03/2017 10:47 AM CDT [facility] Triglycerides 107 <150 mg/dL 11/03/2017 10:47 AM CDT [facility] VLDL Calculated 21 <31 mg/dL 8 10:47 AM CDT [facility] HDL Cholesterol 45 >40 mg/dL 8 10:47 AM CDT [facility] LDL Calculated 120 <160 mg/dL 11/03/2017 10:47 AM CDT [facility] Blood BLOOD SPECIMEN / Unknown Lab Venipuncture / Unknown 11/03/2017 9:42 AM CDT 11/03/2017 9:46 AM CDT Narrative [facility] - 11/03/2017 10:47 AM CDT Lipid Profile Comment: *Risk Factors modify LDL Goals. Below is the desirable LDL goal for each combination of risk factors. 0-1 Risk Factor <160 mg/dL Multiple (2+) Risk Factors <130 mg/dL CHD or other forms of atherosclerosis <100 mg/dL Diabetes <100 mg/dL Note: This test is for fasting patients only. A non-fasting state may alter some of these results. us Demetrio DOWD LAB - CHEMISTRY ORDERABLE S Final Result [facility] [address] [place], [place] [address] [phone] from Last 3 Months or Most Recently Relevant to Health Maintenance Insurance [employer] Advance Directives * Full Code (Latest Code Status on File) Date Activated Date Inactivated Comments 09/12/2017 1:53 PM 09/13/2017 3:37 PM Care Teams Retail Experience Specialist Relationship Specialty Start Date End Date Cristy Meyers APRN-CNP PCP - General Nurse Practitioner 09/13/20
--- OUTSIDE RECORDS SUMMARY | 2024-12-26 18:02 | XMS_ITS ---
Author Organization [facility] Network Address [id number] [place] [address] Care Team Providers Care Supervisor Beet End Name Role Phone Luigi REESE-Cristy HANNAH Primary Care Physician Cristy Meyers Attending Clinician [phone] Marlon Weller Attending Clinician [phone] Max Arauz Attending Clinician [phone] Jackie Inman Attending Clinician [phone] Jackie Inman Attending Clinician [phone] Bhaskar Barreto Attending Clinician [phone] Olman Hoyt Attending Clinician [phone] Nilda Petersen Attending Clinician [phone] Oneila Foster Attending Clinician [phone] Problems Condition Name Condition Details Condition Category Status Onset Date Resolution Date Last Treatment Date Treating Clinician Comments Body mass index [BMI] 32.0-32.9, adult Body mass index [BMI] 32.0-32.9, adult Diagnosis interpreta tion (observabl e entity) 04-12 00:00: 00 2024-04-12 00:00:00 Body mass index [BMI] 32.0-32.9, adult Body mass index [BMI] 32.0-32.9, adult Diagnosis interpreta tion (observabl e entity) 03-25 00:00: 00 2024-03-25 00:00:00 Body mass index [BMI] 32.0-32.9, adult Body mass index [BMI] 32.0-32.9, adult Diagnosis interpreta tion (observabl e entity) - 00:00: 2023-12-30 00:00:00 Body mass index [BMI] 32.0-32.9, adult Body mass index [BMI] 32.0-32.9, adult Diagnosis interpreta tion (observabl e entity) 11-24 00:00: 00 2023-11-25 00:00:00 Major depressive disorder, recurrent, mild Major depressive disorder, recurrent, mild Diagnosis interpreta tion (observabl e entity) 11-24 00:00: 00 2023-11-25 00:00:00 Body mass index [BMI] 32.0-32.9, adult Body mass index [BMI] 32.0-32.9, adult Diagnosis interpreta tion (observabl e entity) 09-23 00:00: 00 2023-09-23 00:00:00 Essential (primary) hypertensio n Essential (primary) hypertensio n Diagnosis interpreta tion (observabl e entity) 09-23 00:00: 00 2023-09-23 00:00:00 Body mass index [BMI] 32.0-32.9, adult Body mass index [BMI] 32.0-32.9, adult Diagnosis interpreta tion (observabl e entity) 08-21 00:00: 00 2023-08-21 00:00:00 Essential (primary) hypertensio n Essential (primary) hypertensio n Diagnosis interpreta tion (observabl e entity) 08-21 00:00: 00 2023-08-21 00:00:00 Body mass index [BMI] 30.0-30.9, adult Body mass index [BMI] 30.0-30.9, adult 04-17 00:00: 00 2023-04-17 00:00:00 Body mass index [BMI] 30.0-30.9, adult Body mass index [BMI] 30.0-30.9, adult 03-17 00:00: 00 2023-03-17 00:00:00 Body mass index [BMI] 28.0-28.9, adult Body mass index [BMI] 28.0-28.9, adult Diagnosis interpreta tion (observabl e entity) 10-22 00:00: 00 2022-10-22 00:00:00 Essential (primary) hypertensio n Essential (primary) hypertensio n 10-22 00:00: 00 2022-10-22 00:00:00 Body mass index [BMI] 27.0-27.9, adult Body mass index [BMI] 27.0-27.9, adult Diagnosis interpreta tion (observabl e entity) 09-13 00:00: 00 2022-09-13 00:00:00 Chronic obstructive asthma co-occurren t with acute exacerbatio n of asthma Chronic obstructive asthma co-occurren t with acute exacerbatio n of asthma Problem (finding) Active (qualif ier value) 09-13 00:00: 00 2022-09-13 00:00:00 Body mass index [BMI] 27.0-27.9, adult Body mass index [BMI] 27.0-27.9, adult Diagnosis interpreta tion (observabl e entity) 2021-07 00:00: 00 2022-06-27 00:00:00 Body mass index [BMI] 26.0-26.9, adult Body mass index [BMI] 26.0-26.9, adult 02-28 00:00: 00 2022-02-28 00:00:00 Major depressive disorder, recurrent, mild Major depressive disorder, recurrent, mild 02-28 00:00: 00 2022-02-28 00:00:00 Hyperlipide steve Hyperlipide steve Problem (finding) Active (qualif ier value) 02-28 00:00: 00 2022-02-28 00:00:00 Anxiety Anxiety Problem (finding) Active (qualif ier value) 02-28 00:00: 00 2022-02-28 00:00:00 Essential hypertensio n Essential hypertensio n Problem (finding) Active (qualif ier value) 02-28 00:00: 00 2022-02-28 00:00:00 Body mass index [BMI] 28.0-28.9, adult Body mass index [BMI] 28.0-28.9, adult 11-28 00:00: 00 2021-11-28 00:00:00 Essential (primary) hypertensio n Essential (primary) hypertensio n Diagnosis interpreta tion (observabl e entity) 11-28 00:00: 00 2021-11-28 00:00:00 Body mass index [BMI] 28.0-28.9, adult Body mass index [BMI] 28.0-28.9, adult 10-31 00:00: 00 2021-10-31 00:00:00 Major depressive disorder, recurrent, mild Major depressive disorder, recurrent, mild Diagnosis interpreta tion (observabl e entity) 10-31 00:00: 00 2021-10-31 00:00:00 Essential (primary) hypertensio n Essential (primary) hypertensio n 10-31 00:00: 00 2021-10-31 00:00:00 Body mass index [BMI] 27.0-27.9, adult Body mass index [BMI] 27.0-27.9, adult Diagnosis interpreta tion (observabl e entity) 2020-07 00:00: 00 2021-06-06 00:00:00 Body mass index [BMI] 27.0-27.9, adult Body mass index [BMI] 27.0-27.9, adult Diagnosis interpreta tion (observabl e entity) 2020-07 00:00: 00 2021-05-29 00:00:00 Hypertensio n Hypertensio n Diagnosis interpreta tion (observabl e entity) 2020-07 00:00: 00 2021-05-29 00:00:00 Body mass index [BMI] 27.0-27.9, adult Body mass index [BMI] 27.0-27.9, adult Diagnosis interpreta tion (observabl e entity) 2020-07 0 00:00: 00 2021-05-16 00:00:00 Hypothyroid ism Hypothyroid ism Problem (finding) Active (qualif ier value) 01-14 00:00: 00 2021-01-14 00:00:00 Body mass index [BMI] 27.0-27.9, adult Body mass index [BMI] 27.0-27.9, adult Diagnosis interpreta tion (observabl e entity) 01-08 00:00: 00 2021-01-08 00:00:00 Body mass index [BMI] 26.0-26.9, adult Body mass index [BMI] 26.0-26.9, adult Diagnosis interpreta tion (observabl e entity) 08-29 00:00: 00 2020-08-29 00:00:00 Encounter for dental examination and cleaning with abnormal findings Encounter for dental examination and cleaning with abnormal findings Diagnosis interpreta tion (observabl e entity) 2019-07 00:00: 00 2020-07-13 00:00:00 Body mass index [BMI] 24.0-24.9, adult Body mass index [BMI] 24.0-24.9, adult Diagnosis interpreta tion (observabl e entity) 2019-07 00:00: 00 2020-07-04 00:00:00 Body mass index (BMI) 25.0-25.9, adult Body mass index (BMI) 25.0-25.9, adult Diagnosis interpreta tion (observabl e entity) 03-31 00:00: 00 2020-03-31 00:00:00 Overweight (BMI 25.0-29.9) Overweight (BMI 25.0-29.9) [id number] Active 08-04 00:00: 00 Vitamin B12 deficiency Vitamin B12 deficiency [id number] Active 12-02 00:00: 00 Vitamin D deficiency Vitamin D deficiency 21889751 Active 12-02 00:00: 00 Hypothyroid ism Hypothyroid ism [id number] Active 2017-07 00:00: 00 Anemia Anemia 20497461 Active 2017-07 00:00: 00 Eczema Eczema 31175305 Active 08-27 00:00: 00 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 09-23 00:00: 00 Tobacco abuse Tobacco abuse [id number] Active 08-26 00:00: 00 Nausea with vomiting, unspecified Nausea with vomiting, unspecified Diagnosis interpreta tion (observabl e entity) Thyroid nodule Thyroid nodule Diagnosis interpreta tion (observabl e entity) Sore throat Sore throat Diagnosis interpreta tion (observabl e entity) Illness Illness Diagnosis interpreta tion (observabl e entity) Acute sinusitis, unspecified Acute sinusitis, unspecified Diagnosis interpreta tion (observabl e entity) Hypothyroid ism Hypothyroid ism Diagnosis interpreta tion (observabl e entity) Hyperlipide steve, unspecified Hyperlipide steve, unspecified Diagnosis interpreta tion (observabl e entity) Vitamin D deficiency, unspecified Vitamin D deficiency, unspecified Diagnosis interpreta tion (observabl e entity) Tobacco use Tobacco use Diagnosis interpreta tion (observabl e entity) Encounter for general adult medical exam w/o abnormal finding Encounter for general adult medical exam w/o abnormal finding Diagnosis interpreta tion (observabl e entity) Fleshy mole Fleshy mole Diagnosis interpreta tion (observabl e entity) Pain Pain Diagnosis interpreta tion (observabl e entity) Encounter for screening mammogram for Ca of breast Encounter for screening mammogram for Ca of breast Diagnosis interpreta tion (observabl e entity) Low back pain Low back pain Diagnosis interpreta tion (observabl e entity) Cancer of thyroid gland Cancer of thyroid gland Anxiety Anxiety UTI UTI Diagnosis interpreta tion (observabl e entity) Encounter for screening for hyperlipide steve Encounter for screening for hyperlipide steve Diagnosis interpreta tion (observabl e entity) Tobacco abuse counseling Tobacco abuse counseling Diagnosis interpreta tion (observabl e entity) Headache, unspecified Headache, unspecified Diagnosis interpreta tion (observabl e entity) Underachiev ement in school Underachiev ement in school Diagnosis interpreta tion (observabl e entity) Unemploymen t, unspecified Unemploymen t, unspecified Diagnosis interpreta tion (observabl e entity) Accessory skin tags Accessory skin tags Diagnosis interpreta tion (observabl e entity) Pericardial effusion Pericardial effusion Diagnosis interpreta tion (observabl e entity) Cough Cough Diagnosis interpreta tion (observabl e entity) Well woman exam w/o abnormal finding Well woman exam w/o abnormal finding Diagnosis interpreta tion (observabl e entity) Encounter for screening pap smear for Ca of cervix Encounter for screening pap smear for Ca of cervix Diagnosis interpreta tion (observabl e entity) Chest pain Chest pain Diagnosis interpreta tion (observabl e entity) Dyspnea Dyspnea Diagnosis interpreta tion (observabl e entity) Hematuria Hematuria Diagnosis interpreta tion (observabl e entity) Bronchitis Bronchitis Diagnosis interpreta tion (observabl e entity) Brittany's thyroiditis Brittany's thyroiditis Diagnosis interpreta tion (observabl e entity) Goiter Goiter Diagnosis interpreta tion (observabl e entity) Fatigue Fatigue Diagnosis interpreta tion (observabl e entity) Back pain Back pain Diagnosis interpreta tion (observabl e entity) 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 Diagnosis interpreta tion (observabl e entity) 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 Diagnosis interpreta tion (observabl e entity) Meibomian gland dysfunction of rt eye, 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, upper and lower eyelids Diagnosis interpreta tion (observabl e entity) Meibomian gland dysfunction of lt eye, upper and lower eyelids Meibomian gland dysfunction of lt eye, upper and lower eyelids Diagnosis interpreta tion (observabl e entity) Amblyopia of left eye Amblyopia of left eye Diagnosis interpreta tion (observabl e entity) Hypermetrop ia, bilateral Hypermetrop ia, bilateral Diagnosis interpreta tion (observabl e entity) Regular astigmatism , bilateral Regular astigmatism , bilateral Diagnosis interpreta tion (observabl e entity) Presbyopia Presbyopia Diagnosis interpreta tion (observabl e entity) Insomnia Insomnia Diagnosis interpreta tion (observabl e entity) Sleep apnea Sleep apnea Diagnosis interpreta tion (observabl e entity) Depression Depression Diagnosis interpreta tion (observabl e entity) Encounter for exam of vision Encounter for exam of vision Diagnosis interpreta tion (observabl e entity) Encounter for screening for cancer of colon Encounter for screening for cancer of colon Bilateral wax in ears Bilateral wax in ears Pain in left wrist Pain in left wrist COPD w/ acute exacerbatio n COPD w/ acute exacerbatio n Diagnosis interpreta tion (observabl e entity) Functional constipatio n Functional constipatio n Diagnosis interpreta tion (observabl e entity) Osteoporosi s Osteoporosi s [id number] Active Allergies, Adverse Reactions, Alerts This patient has no known allergies or adverse reactions. Medications Ordered Medication Name Filled Medication Name Start Date Stop Date Current Medication? Ordering Clinician Indication Dosage Frequency Signature (SIG) Comments Components VENTOLIN HFA 90MCG INHALER 108 (90 BAS Aerosol 2023-07 0 00:00: 00 Yes INHALE 2 PUFFS BY MOUTH EVERY 4 TO 6 HOURS NEEDED cyanocobala min (vit B-12) 1,000 mcg/mL injection solution 03-25 00:00: 00 Yes 1mL Q1MON inject 1 milliliter by intramuscu lar route every month for vitamin B12 deficiency levothyroxi ne 112 mcg tablet 03-25 00:00: 00 Yes 1{table t} Q1D take 1 tablet by oral route every day benzonatate 100 mg capsule 03-25 00:00: 00 Yes 1{capsu le} Q8H take 1 capsule by oral route 3 times every day as needed for cough for cough Vitamin D2 1,250 mcg (50,000 unit) capsule 03-25 00:00: 00 07-24 00:00 :00 No take 1 capsule by oral route every week cyclobenzap rine 10 mg tablet 12-29 00:00: 00 Yes 1{table t} Q8H take 1 tablet by oral route 3 times every day ibuprofen 800 mg tablet 12-29 00:00: 00 Yes 1{table t} Q8H take 1 tablet by oral route 3 times every day with food Serevent Diskus 50 mcg/dose powder for inhalation 11-27 00:00: 00 Yes 1{puff} Q12H inhale 1 puff by inhalation route 2 times every day in the morning and evening [facility] 12 hours apart syringe with needle 1 mL 25 gauge x 1 11-25 00:00: 00 Yes use twice monthly with B-12 injection. buspirone 5 mg tablet 11-24 00:00: 00 Yes TAKE ONE TABLET BY MOUTH, TWICE DAILY 340b plan atorvastati n 20 mg tablet 11-24 00:00: 00 Yes 1{table t} Q1D take 1 tablet by oral route every day 340b plan amlodipine 5 mg tablet 11-24 00:00: 00 Yes 1{table t} Q1D take 1 tablet by oral route every day famotidine 20 mg tablet 11-24 00:00: 00 Yes 1{table t} Q1D take 1 tablet by oral route every day for GERD omeprazole 20 mg capsule,del ayed release 11-24 00:00: 00 Yes take 1 capsule by oral route every day 30 minutes to 1 hour before breakfast for GERD Lexapro 10 mg tablet 11-24 00:00: 00 Yes 1{table t} Q1D take 1 tablet by oral route every day for F33.0 Sporanox 100 mg capsule 11-24 00:00: 00 Yes take 2 capsule by oral route every day with food for 12 weeks for toe nail fungus hydrochloro thiazide 12.5 mg tablet 11-24 00:00: 00 Yes 1{table t} Q1D take 1 tablet by oral route every day albuterol sulfate HFA 90 mcg/actuati on aerosol inhaler 11-24 00:00: 00 04-29 00:00 :00 No 2{puff} Q4H inhale 2 puff by inhalation route every 4 - 6 hours as needed lisinopril 2.5 mg tablet 10-13 00:00: 00 Yes 1{table t} Q1D take 1 tablet by oral route every day Mucinex 1,200 mg tablet, extended release 10-22 00:00: 00 Yes take one tablet every 12 hours Excedrin Migraine 250 mg-250 mg-65 mg tablet 08-29 09:56: 00 Yes Aspirin-Vishnu taminophen- Caffeine (EXCEDRIN PO) 09-28 15:14: 42 Yes 2{tbl} QD Take 2 tablets by mouth once daily as needed levothyroxi ne (SYNTHROID) 150 MCG tablet 2018-07 00:00: 00 Yes [id number] 150ug QD Take 1 tablet by mouth once daily Start on 06/16/19 cyanocobala min (VITAMIN B-12) injection 1,000 mcg 11-26 08:30: 00 Yes [id number] 1000ug Q7D acetaminoph en (TYLENOL) 325 MG tablet 09-13 00:00: 00 Yes 650mg Q4H Take 2 tablets by mouth every 4 hours as needed Maximum allowable Acetaminop hen amount = 4 Grams (4000 mg) / 24 hours. albuterol HFA (PROVENTIL; VENTOLIN;WA OAIR) 108 (90 BASE) MCG/ACT inhaler 01-29 00:00: 00 Yes 2{puff} Q4H Inhale 2 Puffs by mouth every 4 hours as needed for Shortness of Breath or Wheezing Procedures Procedure Date / Time Performed Performing Clinicia n Device Established Patient Expanded Problem Focused Office Visit 2024-04-12 00:00:00 OFFICE/OUTPATIENT VISIT EST 2024-03-25 00:00:00 Established Patient Expanded Problem Focused Office Visit 2023-12-30 00:00:00 Established Patient Comprehe nsive Office Visit 2023-11-25 00:00:00 Vision svcs frames purchases 2023-10-14 00:00:00 Spherocylindr 7.25d/4.25-6d 2023-10-14 00:00:00 Lens sphcyl bifo 7.25-12/2.2 2023-10-14 00:00:00 Lens, 1.54-1.65 p/1.60-1.79g 2023-10-14 00:00:00 REFRACTION 2023-10-14 00:00:00 EYE EXAM & TREATMENT 2023-10-14 00:00:00 ELECTROCARDIOGRAM, COMPLETE 2023-09-23 00:00:00 Established Patient Comprehe nsive Office Visit 2023-09-23 00:00:00 Established Patient Comprehe nsive Office Visit 2023-08-21 00:00:00 Established Patient Expanded Problem Focused Office Visit 2023-04-17 00:00:00 Established Patient Comprehe nsive Office Visit 2023-03-17 00:00:00 OFFICE/OUTPATIENT VISIT EST 2022-10-22 00:00:00 Wrist 3v 2022-09-13 00:00:00 OFFICE/OUTPATIENT VISIT EST 2022-09-13 00:00:00 OFFICE/OUTPATIENT VISIT EST 2022-06-27 00:00:00 OFFICE/OUTPATIENT VISIT EST 2022-02-28 00:00:00 OFFICE/OUTPATIENT VISIT EST 2021-11-28 00:00:00 OFFICE/OUTPATIENT VISIT EST 2021-10-31 00:00:00 OFFICE/OUTPATIENT VISIT EST 2021-06-06 00:00:00 OFFICE/OUTPATIENT VISIT EST 2021-05-29 00:00:00 OFFICE/OUTPATIENT VISIT EST 2021-05-16 00:00:00 Established Patient Expanded Problem Focused Office Visit 2021-01-08 00:00:00 MAMMO BILAT DIAGNOSTIC 2020-09-13 10:02:50 Lummis, Lindy ryl G OFFICE/OUTPATIENT VISIT EST 2020-08-29 00:00:00 Resin-Based Composite-One [place] rface, Posterior 2020-08-07 00:00:00 Resin-Based Composite-Two [place] rfaces, Anterior 2020-08-07 00:00:00 Comprehensive Oral Evaluatio n-New Or Established P 2020-07-13 00:00:00 Panoramic Radiographic Image 2020-07-13 00:00:00 Bitewings-Four Radiographic Images 2020-07-13 00:00:00 Intraoral-Periapical Each Additional Radiographic 2020-07-13 00:00:00 OFFICE/OUTPATIENT VISIT EST 2020-07-04 00:00:00 OFFICE/OUTPATIENT VISIT EST 2020-03-31 00:00:00 COMPREHENSIVE METABOLIC PANEL 2019-04-14 20:05:00 Miriam Mckoy LIPID PROFILE 2017-11-03 09:42:00 Demetrio Bojorquez Established Patient Comprehe nsive Office Visit 2017-08-19 00:00:00 Established Patient Expanded Problem Focused Office Visit 2017-02-05 00:00:00 Established Patient Detailed History Office Visit 2016-09-06 00:00:00 Established Patient Detailed History Office Visit 2016-09-02 00:00:00 Established Patient Detailed History Office Visit 2016-08-26 00:00:00 Established Patient Detailed History PAYROLL COORDINATOR Est Pt Office Visit 2016-05-08 00:00:00 New Patient Expanded Problem Focused PAYROLL COORDINATOR New Pt Office Visit 2016-04-10 00:00:00 Encounters Start Date/Time End Date/Time Encounter Type Admission Type Attending Clinicians Care Facility Care Department Encounter ID 2024-04-29 09:54:00 2024-04-29 09:54:00 Outpatient Lummis, Cristy [facility] [id number] 2024-04-12 16:00:00 2024-04-12 16:00:00 Established Patient Expanded Problem Focused Office Visit Marlon Weller [facility] [id number] 2024-03-25 13:30:00 2024-03-25 13:30:00 OFFICE/OUTPATI ENT VISIT EST Cristy Meyers [facility] [id number] 2023-12-30 10:30:00 2023-12-30 10:30:00 Established Patient Expanded Problem Focused Office Visit Marlon Weller [facility] [id number] 2023-11-28 16:25:00 2023-11-28 16:25:00 Outpatient Cristy Meyers [facility] [id number] 2023-11-26 09:41:00 2023-11-26 09:41:00 Outpatient Cristy Meyers [facility] [id number] 2023-11-25 13:30:00 2023-11-25 13:30:00 Established Patient Comprehensive Office Visit Cristy Meyers [facility] [id number] 2023-10-14 13:00:00 2023-10-14 13:00:00 Outpatient Max Arauz [facility] [id number] 2023-09-23 11:30:00 2023-09-23 11:30:00 Established Patient Comprehensive Office Visit Cristy Meyers [facility] [id number] 2023-08-21 11:30:00 2023-08-21 11:30:00 Established Patient Comprehensive Office Visit Luigi [facility] [id number] 2023-04-17 11:30:00 2023-04-17 11:30:00 Established Patient Expanded Problem Focused Office Visit Luigi [facility] [id number] 2023-03-17 11:30:00 2023-03-17 11:30:00 Established Patient Comprehensive Office Visit Luigi [facility] [id number] 2022-10-22 10:00:00 2022-10-22 10:00:00 OFFICE/OUTPATI ENT VISIT EST Luigi [facility] [id number] 2022-09-13 08:00:00 2022-09-13 08:00:00 [id number] 2022-06-27 09:30:00 2022-06-27 09:30:00 OFFICE/OUTPATI ENT VISIT EST Jackie Inman [facility] [id number] 2022-02-28 10:00:00 2022-02-28 10:00:00 OFFICE/OUTPATI ENT VISIT EST Luigi [facility] [id number] 2021-11-28 09:30:00 2021-11-28 09:30:00 OFFICE/OUTPATI ENT VISIT EST Luigi [facility] [id number] 2021-10-31 10:00:00 2021-10-31 10:00:00 OFFICE/OUTPATI ENT VISIT EST LummisCristy [facility] [id number] 2021-06-25 13:39:00 2021-06-25 13:39:00 Outpatient Lummis [facility] [id number] 2021-06-06 10:30:00 2021-06-06 10:30:00 OFFICE/OUTPATI ENT VISIT EST Johanmis [facility] [id number] 2021-05-29 17:00:00 2021-05-29 17:00:00 OFFICE/OUTPATI ENT VISIT EST Lummis [facility] [id number] 2021-05-16 08:30:00 2021-05-16 08:30:00 OFFICE/OUTPATI ENT VISIT EST Lummis Cristy [facility] [id number] 2021-01-08 17:30:00 2021-01-08 17:30:00 Established Patient Expanded Problem Focused Office Visit Andreas [facility] [id number] 2020-09-12 10:41:00 2020-09-12 10:41:00 Outpatient Lummis [facility] [id number] 2020-08-29 09:30:00 2020-08-29 09:30:00 OFFICE/OUTPATI ENT VISIT EST Lummis [facility] [id number] 2020-08-07 09:00:00 2020-08-07 09:00:00 Outpatient Bhaskar Barreto [facility] [id number] 2020-07-13 08:00:00 2020-07-13 08:00:00 Outpatient Bhaskar Barreto [facility] [id number] 2020-07-04 09:00:00 2020-07-04 09:00:00 OFFICE/OUTPATI ENT VISIT EST Evelina, [facility] [id number] 13:16:00 2020-03-31 13:16:00 Outpatient Nicola Nilda [facility] [id number] 2020-03-31 13:00:00 2020-03-31 13:00:00 OFFICE/OUTPATI ENT VISIT EST Evelina [facility] [id number] 2017-08-19 08:00:00 2017-08-19 08:00:00 Established Patient Comprehensive Office Visit Onelia Foster [facility] [id number] 2017-02-05 08:30:00 2017-02-05 08:30:00 Established Patient Expanded Problem Focused Office Visit Evelina [facility] [id number] 2016-09-06 17:30:00 2016-09-06 17:30:00 Established Patient Detailed History Office Visit Evelina, [facility] [id number] 2016-09-02 08:00:00 2016-09-02 08:00:00 Established Patient Detailed History Office Visit [facility] [id number] 2016-08-26 14:00:00 2016-08-26 14:00:00 Established Patient Detailed History Office Visit [facility] [id number] 2016-05-08 09:15:00 2016-05-08 09:15:00 Established Patient Detailed History PAYROLL COORDINATOR Est Pt Office Visit [facility] [id number] 2016-04-10 15:15:00 2016-04-10 15:15:00 New Patient Expanded Problem Focused PAYROLL COORDINATOR New Pt Office Visit [facility] [id number] Family History Family Member Diagnosis Comments Start Date Stop Date Natural brother Natural father ADHD Natural father Alcohol abuse Natural father Other Natural mother Negative Family History Natural sister Negative Family History Brother Alive and well 2020-08-29 00:00:00 2 00:00:00 Mother Alive and well 2020-08-29 00:00:00 2 00:00:00 Father alcoholism (Cause Of ) 2020-08-29 00:00:00 2020-08-29 00:00:00 Social History Social Habit Start Date Stop Date Comments History of tobacco use 1985[birth year]09[birth year]12 00:00:00 ASSERTION Gender identity Sexual orientation Alcoholic beverage intake 2020-09-13 00:00:00 00:00:00 History of Social function 2020-09-13 00:00:00 2020-08 00:00:00 Cigarettes smoked current (p ack per day) - Reported 2017-09-12 00:00:00 2017-09-12 00:00:00 Cigarette pack-years 2017-09-12 00:00:00 2017-09-12 00 :00:00 Tobacco use and exposure 2017-09-12 00:00:00 2017-08-28 6 00:00:00 Sex [birth year] at 1970 00:00[birth year]00 1970 0 0:00:00 Smoking Status Start Date Stop Date Smokes tobacco daily 2017-09-12 00:00:00 2017-08 00:00:00 Immunizations Ordered Immunization Name Filled Immunization Name Date Status Comments Refusal Reason PNEUMOCOCCAL PPSV23 2019-06-29 00:00:00 Completed INFLUENZA VACCINE, QUADR. (FLUZONE; FLULAVAL; FLUARIX; AFLURIA QUADRIVALENT; 6MO+), 0.5 ML (IIV4) 2019-06-29 00:00:00 Completed Pneumococcal Pcv13 Conj 2018-05-22 00:00:00 Completed INFLUENZA VACCINE, QUADR. (AFLURIA, FLUZONE QUADRIVALENT; 6MO+) (IIV4) 2018-05-22 00:00:00 Completed TD VACCINE 2014-12-08 00:00:00 Completed Plan of Treatment Planned Activity Planned Date Details Comments Future Scheduled Test 2024-12-10 04:23:34 Screen ing for malignant neoplasm of colon (procedure) [code = 326019965] Future Scheduled Test 2024-12-10 04:23:34 Screen ing for malignant neoplasm of colon (procedure) [code = 945379611] Future Scheduled Test 2024-12-10 04:23:34 Screen ing for malignant neoplasm of colon (procedure) [code = 381872424] Future Scheduled Test 2024-12-10 04:23:34 Screen ing for malignant neoplasm of colon (procedure) [code = 627338386] Future Scheduled Test 2024-12-10 04:23:34 Screen ing for malignant neoplasm of colon (procedure) [code = 322951060] Future Scheduled Test 2024-12-10 04:23:34 Screen ing for malignant neoplasm of colon (procedure) [code = 145365657] Future Scheduled Test 2024-12-10 04:23:34 Screen ing for malignant neoplasm of colon (procedure) [code = 197115742] Future Scheduled Test 2024-12-10 04:23:34 HIV SC REENING [code = HIV SCREENING] Future Scheduled Test 2024-12-10 04:23:34 HEPATI TIS C SCREENING [code = HEPATITIS C SCREENING] Future Scheduled Test 2024-12-10 04:23:34 Admini stration of vaccine product containing only Hepatitis B virus antigen (procedure) [code = 04457038] Future Scheduled Test 2024-12-10 04:23:34 SCREEN ING FOR DIABETES [code = SCREENING FOR DIABETES] Future Scheduled Test 2024-12-10 04:23:34 ZOSTER VACCINE (1 of 2) [code = ZOSTER VACCINE (1 of 2)] Future Scheduled Test 2024-12-10 04:23:34 MAMMOGRAM [c ode = MAMMOGRAM] Future Scheduled Test 2024-12-10 04:23:34 LIPID TESTING [code = LIPID TESTING] Future Scheduled Test 2024-12-10 04:23:34 COVID- 19 VACCINE ( season) [code = COVID-19 VACCINE ( season)] Future Scheduled Test 2024-12-10 04:23:34 PNEUMO COCCAL VACCINE 50+ (3 of 3 - PCV20 or PCV21) [code = PNEUMOCOCCAL VACCINE 50+ (3 of 3 - PCV20 or PCV21)] Future Scheduled Test 2024-12-10 04:23:34 DEPRES SIMBA SCREENING [code = DEPRESSION SCREENING] Future Scheduled Test 2024-12-10 04:23:34 Admini stration of third dose of vaccine product containing only acellular Bordetella pertussis and Clostridium tetani and Corynebacterium diphtheriae antigens (procedure) [code = 187886871] Future Scheduled Test 2024-12-10 04:23:34 Admini stration of vaccine product containing only Influenza virus antigen (procedure) [code = 79074056] Vital Signs Vital Name Observation Time Observation Value Commen ts Height 2024-04-12 16:48:00 144.78 cm Body Weight 2024-04-12 16:48:00 67.132 kg Intravascular Systolic 2024-04-12 16:48:00 118 mm[Hg] Intravascular Diastolic 2024-04-12 16:48:00 77 mm[Hg] Heart Rate 2024-04-12 16:48:00 77 /min Body Temperature 2024-04-12 16:48:00 36.39 Nara Respiratory rate 2024-04-12 16:48:00 19 /min Body mass index 2024-04-12 16:48:00 32.03 kg/m2 SaO2 % BldA PulseOx 2024-04-12 16:48:00 94 % Systolic blood pressure 2019-09-29 15:13:00 102 mm[Hg] Diastolic blood pressure 2019-09-29 15:13:00 64 mm[Hg] Heart rate 2019-09-29 15:13:00 68 /min Body temperature 2019-09-29 15:13:00 36.61 Nara Respiratory rate 2019-09-29 15:13:00 16 /min Body height 2019-09-29 15:13:00 144.8 cm Body weight 2019-09-29 15:13:00 53.695 kg BMI 2019-09-29 15:13:00 25.62 kg/m2 Oxygen saturation in Arteria l blood by Pulse oximetry 2019-09-29 15:13:00 97 %
--- OUTSIDE RECORDS SUMMARY | 2024-12-26 18:02 | XMS_ITS | CCD ---
Author Name Interface, [id number] [facility] [place] [address] [facility] [place] [address] Care Team Providers Care Site Damage Prevention Technician Name Role Phone Joel Bundy Unavailable Unavailable Reason for Visit Social History
--- OUTSIDE RECORDS SUMMARY | 2024-12-26 18:05 | XMS_ITS | CCD ---
Author Name Interface, [id number] [place] [address] [facility] [place] [address] Care Team Providers Care Basket Hand Braider Name Role Phone Joel Bundy Unavailable Unavailable Reason for Visit Social History
--- OUTSIDE RECORDS SUMMARY | 2024-12-26 18:05 | XMS_ITS | Continuity of Care Document ---
Author Organization [facility] Address [address] [place] [address] Phone Care Team Providers Care Park Landscape Architect Name Role Phone Unavailable Unavailable Unavailable Medications [...] - No Longer Active Procedures Procedure Date SYPHILIS TEST; QUALITATIVE (EG, VDRL, RP R, ART) N.GONORRHOEAE, DNA, AMP PROB LIPID PANEL CULTURE, BACTERIAL; QUANTITATIVE COLONY COUNT, URINE PERIODIC COMPREHENSIVE PREVENTIVE MED RE E/M; ESTABLISHED PATIENT; 18-39 URNLS DIP STICK/TABLET RGNT AUTO W/O MORGAN ANTIBODY; HIV-1 CHYLMD TRACH, DNA, AMP PROBE CYTP C/V AUTO THIN LYR PREPJ SCR SYS PHY S Debridement, Full Mouth Oral hygiene instruction Comprehensve oral evaluation Dental bitewings two films OFFICE OUTPT EST 10 MIN ANTIBODY; HIV-1 AND HIV-2, SINGLE ASSAY COLLECTION OF VENOUS BLOOD BY VENIPUNCTU RE CHYLMD TRACH, DNA, AMP PROBE PERIODIC COMPREHENSIVE PREVENTIVE MED RE E/M; ESTABLISHED PATIENT; 18-39 IAAD EIA HEP B SURF AG HEPATITIS C ANTIBODY; N.GONORRHOEAE, DNA, AMP PROB CYTP C/V AUTO THIN LYR PREPJ SCR SYS PHY S SYPHILIS TEST; QUALITATIVE (EG, VDRL, RP R, ART) OFFICE OUTPT EST 10 MIN HEPATITIS C ANTIBODY; CHYLMD TRACH, DNA, AMP PROBE SYPHILIS TEST; QUALITATIVE (EG, VDRL, RP R, ART) IAAD EIA HEP B SURF AG CYTP SLIDES C/V MNL SCR PHYS GONADOTROPIN; FOLLICLE STIMULATING HORMO NE (FSH) N.GONORRHOEAE, [...] High RiskHPV DNA testing was not performed. OPERATOR MAINTAINER : 2007 09:42:0 0 Final PONCE, CT(ASCP) REVIEW OPERATOR MAINTAINER : 2007 09:42:0 0 Final MLK, CT(ASCP) [...] Encounter [facility], [address], [place], [place], [id number] , [place] tel: [phone] No Information 2 8 No Information PERIODIC COMPREHENSIVE PREVENTIVE MED REE/M; ESTABLISHED PATIENT; 18-39 [facility], [address], [place], [place], [id number] , [place] tel: [phone] [facility] ROUTINE OIM CONSULTANT EXAMINATIONVAGIN ITIS NOS 2- 8 No Information [facility], [address], [place], [place], [id number] , [place] tel: [phone] [facility] DENTAL EXAMINATION 4-200 8 No Information OFFICE OUTPT EST 10 MIN [facility], [address], [place], [place], [id number] , [place] tel: [phone] [facility] OSTEOPOROSIS NOS -200 7 No Information PERIODIC COMPREHENSIVE PREVENTIVE MED REE/M; ESTABLISHED PATIENT; 18-39 [facility], [address], [place], [place], [id number] , [place] tel: [phone] [facility] ROUTINE OIM CONSULTANT EXAMINATION 6-200 7 No Information OFFICE OUTPT EST 10 MIN [facility], [address], [place], [place], [address] , [place] tel: [phone] [facility] VAGINITIS NOSOSTEOPOROSIS NEC 5-200 6 No Information OFFICE OUTPT EST 10 MIN [facility], [address], [place], [place], [address] , [place] tel: [phone] [facility] ROUTINE OIM CONSULTANT EXAMINATION 1-200 6 No Information Family History [...]
--- OUTSIDE RECORDS SUMMARY | 2024-12-26 18:05 | XMS_ITS | CCD ---
Author Name Interface, [email or web address] [facility] [place] [address] [facility] [place] [address] Care Team Providers Care Board Finisher Name Role Phone Joel Bundy Unavailable Unavailable Reason for Visit Social History
[2024-12-26] MEDS: methylPREDNISolone SOD SUCC 125 MG VIAL 60 MG IV PUSH ×2 (18:57→23:04)
--- NOTE | 2024-12-26 19:03 | P.HP_ITS ---
H&P: HPI History of Present Illness Date/Time: 12/26/24 19:03 Chief Complaint: Upper Respiratory Infection Narrative: 54 F with PMHx chronic smoker, thyroid cancer (removed thyroid) Toney syndrome, bronchitis HTN, HLD, visited ED for SOB. During the evaluation patient reports she had increased work of breathing and cough for past few days. Patient reports she lives in [place], [place] and follows up with PCP and Cardiology. Of note patient reports that she had echocardiogram 5 years ago which showed pericardial effusion but never followed up. She reports that she has oncoming echocardiogram on December 312024. Pertinent ED labs: WBC 14.4, HgB 14.6, platelet 285, sodium 139, potassium 4.2, creatinine 0.59 COVID RSV flu negative Patient is admitted in the setting of COPD exacerbation. Patient is a chronic smoker. Encouraged smoking cessation. Will order echocardiogram to rule out CHF and also ordered CTA to rule out PE since patients with Down syndrome are hypercoagulable state. Of note patient has a history of thyroid cancer which was removed 3 years ago and currently treated with levothyroxine. Review of Systems Review of Systems: All systems reviewed & are unremarkable except as noted in HPI and below PMFSH Social History Social History Smoking status: Current every day smoker Tobacco type: cigarettes Alcohol intake: never Substance use: never Substance use type: does not use Do You Feel Safe in your Home?: Yes Lack of Transportation: No Lack of Food: Never True Current Housing: I Have Housing Concerned About Future Housing: No Difficulty Paying Gas/Electric Bills: No Difficulty Paying for Meds: No Currently Unemployed: No Education: Grade School Difficulty w/ Childcare or Family Care: No Spiritual care concerns: No Meds Home Medications and Allergies Home Medications ?Medication ?Instructions ?Recorded ?Confirmed ?Type albuterol 90 mcg/actuation aerosol 90 mcg inhalation QID PRN 12/26/24 12/26/24 History inhaler shortness of breath benzonatate 100 mg capsule 100 mg PO TID PRN cough 12/26/24 12/26/24 History ibuprofen 800 mg tablet (IBU) 800 mg PO TID PRN pain 12/26/24 12/26/24 History levothyroxine 112 mcg tablet 112 mcg PO DAILY 06/01/25 06/01/25 History (Euthyrox) Allergies Allergy/AdvReac Type Severity Reaction Status Date / Time No Known Allergies Allergy Verified 12/26/24 11:42 Vital Signs Vital Signs - 24 hr 12/26/24 12:00 12/26/24 14:13 12/26/24 14:20 Temperature 97.3 F L Pulse Rate 82 101 H 77 Respiratory Rate 16 38 H 25 H Blood Pressure 150/70 H 175/94 H Pulse Oximetry 96 98 Oxygen Delivery Room Air Oxygen Flow Rate 12/26/24 15:42 12/26/24 16:35 12/26/24 17:02 Temperature Pulse Rate 98 91 Respiratory Rate 24 H 24 H Blood Pressure 149/73 H 134/81 Pulse Oximetry 100 94 95 Oxygen Delivery Nasal Cannula Oxygen Flow Rate 2 12/26/24 17:19 Temperature Pulse Rate 97 Respiratory Rate 18 Blood Pressure 134/79 Pulse Oximetry 94 Oxygen Delivery Oxygen Flow Rate Exam Narrative: General appearance: Well-developed, well-nourished Skin: Normal color Head: Normocephalic, nontraumatic Eyes: Clear conjunctiva ENT: Oropharynx normal, ears normal, nose normal Neck: Supple, nontender Chest and respiratory: Airway patent, labored breathing, diminution of air entry bilaterally, scattered wheezing and rhonchi bilaterally Heart: Tachycardia Abdomen: Soft, nontender, no organomegaly, quiet bowel sounds Vascular: Normal peripheral pulses, normal capillary refill. Musculoskeletal: Normal range of motion, nontender back Neurologic: Alert and oriented ?3, STRUCTURAL SHOP HELPER is normal as tested, no gross motor deficit H&P: Results Labs Labs: Short CBC 12/26/24 Range/Units 13:32 WBC 14.4 H (4.5-10.0) K/mm3 Hgb 14.6 (12.0-15.0) g/dL Hct 44.0 (37.0-47.0) % Plt Count 285 (150-375) k/mm3 BMP 12/26/24 13:32 Sodium 139 Potassium 4.2 Chloride 106 Carbon Dioxide 26 BUN 8 Creatinine 0.59 L Glucose 108 Calcium 9.4 Cardiac Enzymes 12/26/24 Range/Units 13:32 Troponin I < 0.012 (0.000-0.034) ng/mL Liver Function 12/26/24 Range/Units 13:32 Total Bilirubin 0.5 (0.2-1.3) mg/dL AST 27 (14-36) U/L ALT 27 (6-35) U/L Alkaline Phosphatase 100 (38-126) U/L Albumin 4.3 (3.5-5.1) g/dL Assessment and Plan Assessment and plan (1) COPD (chronic obstructive pulmonary disease): Code(s): J44.9 - Chronic obstructive pulmonary disease, unspecified Status: Acute (2) Pneumonia: Code(s): J18.9 - Pneumonia, unspecified organism Status: Acute (3) Toney syndrome: Code(s): Q96.9 - Toney's syndrome, unspecified Status: Acute (4) Hypothyroid: Code(s): E03.9 - Hypothyroidism, unspecified Status: Acute Plan PNA/COPD Exacerbation Vital signs improved and stable RSV COVID flu negative Started on ceftriaxone and doxycycline monitor cultures Tessalon Perles p.r.n. for cough Scheduled Mucinex D units q.6 hours Methylprednisone 60 mg IV q.6 hr MRSA pending CTA pending encourage oral intake Hypothyroid due to surgical removal thyroid due to cancer Continue home dose levothyroxine Toney syndrome Managed as an outpatient Echo pending DVT prophylaxis Lovenox 40 mg subcutaneous Hospitalist MIPS Advance Care Plan I have confirmed that the patient's Advanced Care Plan is present, code status is documented, or surrogate decision maker is listed in patient medical record.: Yes Medication Reconciliation I have utilized all available resources to obtain, update and review the patients current medications (includes all prescriptions, OTC, herbals, cannabis, and nutritional supplements).: Yes
[2024-12-26] MEDS: guaiFENesin 12 HR 600 MG TABCR 1200 MG PO (20:23)
[2024-12-26] MEDS: cefTRIAXone 2 GM/NS 100 ML 2 GM/100 ML BAG IVPB (20:24)
[2024-12-26] MEDS: BENZONATATE 100 MG CAPSULE PO (20:24)
[2024-12-26] MEDS: IPRATROPIUM 0.5 MG/ALBUTEROL SULFATE 2.5 MG AMPUL.NEB 3 ML INHALATION (20:35)
[2024-12-26] MEDS: DOXYCYCLINE 100 MG/NS 100 ML 100 MG/100 ML BAG IVPB (21:38)
[2024-12-27] VITALS (13 sets, daily range): BP systolic 133–149; BP diastolic 50–61; PULSE 63–113; RESP 16–20; TEMP 36.6–36.8; O2SAT 95–100
--- NOTE | 2024-12-27 | ECHO_ITS ---
Patient Info Name: Kanwal Stearns Age: 54 years : 1970 Gender: Female Ht: 57 in Wt: 149 lbs BSA: 1.68 m2 HR: 93 bpm BP: 133 / 61 mmHg Technical Quality: Fair Exam Date: 12/27/2024 8:07 AM Patient Status: I Admit Date: 12/26/2024 Exam Type: CA echo dop color flow w con Complete two-dimensional, color flow and Doppler transthoracic echocardiogram is performed with contrast to opacify the left ventricle and to improve the deliniation of the left ventricle endocardial borders. Staff Referring Physician: Tacho Kilgore Coffee Maker: Joy Wilkinson Attending Provider: Madi Marcano Contrast/Agitated Saline Contrast/Ag. Saline: Definity Amount: 2.00 ml Administered By: Joy Wilkinson Existing IV Access: Yes IV Access Condition: patent with no signs of infiltration Summary 1. The left ventricle is normal in size with hyperdynamic systolic function. The left ventricular ejection fraction is visually estimated to be greater than 70%. 2. The right ventricle is normal in size and systolic function. 3. There is small pericardial effusion. Left Ventricle The left ventricle is normal in size with hyperdynamic systolic function. The left ventricular ejection fraction is visually estimated to be greater than 70%. Right Ventricle The right ventricle is normal in size and systolic function. Left Atria The left atrium is normal size. Right Atria The right atrium is normal size. Atrial Septum The atrial septum is not well visualized. Aortic Valve The aortic valve is not visualized. The gradients across the aortic valve suggests normal function valve. Pulmonic Valve The pulmonic valve is not visualized. Mitral Valve The mitral valve is normal. Tricuspid Valve The tricuspid valve is normal. Pericardium/Pleural There is small pericardial effusion. Inferior Vena Cava Normal inferior vena cava with >50% collapse upon inspiration consistent with normal right atrial pressure, 3 mmHg. Aorta The aortic root at the level of the sinus of Valsalva measures 2.2 cm in diameter. Left Ventricular Outflow Tract Name Value Normal LVOT 2D LVOT Diameter 1.7 cm LVOT Doppler LVOT Peak Velocity 182 cm/s LVOT Peak Gradient 13 mmHg LVOT Mean Gradient 6 mmHg LVOT VTI 29 cm LVOT VTI/AV VTI Ratio 0.9 LVOT Stroke Volume 67 ml LVOT CO 6.5 l/min LVOT CI 3.8 l/min/m2 Mitral Valve Name Value Normal MV Diastolic Function MV E Peak Velocity 104 cm/s MV A Peak Velocity 132 cm/s MV E/A 0.8 MV Decel Time (PW) 167 ms MV Annular TDI MV E/e' (Septal) 10.7 MV E/e' (Lateral) 11.0 MV E/e' (Average) 10.8 Tricuspid Valve Name Value Normal TV Regurgitation Doppler TR Peak Velocity 127 cm/s TR Peak Gradient 6 mmHg Estimated PAP/RSVP RA Pressure 3 mmHg <=5 PA Systolic Pressure 9 mmHg <36 RV Systolic Pressure 9 mmHg <36 TV Annular TDI TV Lateral Ada s' Velocity 17.0 cm/s >=9.5 Aortic Valve Name Value Normal AV Doppler AV Peak Velocity 199 cm/s AV Peak Gradient 16 mmHg AV Mean Gradient 9 mmHg AV VTI 33 cm AV Area (Cont Eq VTI) 2.0 cm2 >=3.0 AV Area (Cont Eq Stu) 2.1 cm2 AV DI (Stu) 0.91 AV Regurgitation 2D LVOT Area 2.3 cm2 Ventricles Name Value Normal LV Dimensions 2D/MM IVS Diastolic Thickness (2D) 0.8 cm 0.6-1.0 LVID Diastole (2D) 3.9 cm 3.8-5.2 LVIW Diastolic Thickness (2D) 0.8 cm 0.6-0.9 LVID Systole (2D) 2.6 cm 2.2-3.5 LVOT Diameter 1.7 cm LV Mass (2D Cubed) 90.78 g 67.00-162.00 LV Mass Index (2D Cubed) 54 g/m2 43-95 Relative Wall Thickness (2D) 0.44 <=0.42 LV Fractional Shortening/Ejection Fraction 2D/MM LV Fractional Shortening (2D) 31 % 27-45 LV EF (2D Teichrojelioz) 60 % LV Diastolic Volume (4C MOD) 61 ml LV EF (4C MOD) 66 % LV Diastolic Volume (2C MOD) 89 ml LV EF (2C MOD) 83 % LV Diastolic Volume (BP MOD) 79 ml 46-106 LV Diastolic Volume Index (BP MOD) 47 ml/m2 29-61 LV Systolic Volume (BP MOD) 16 ml 14-42 LV Systolic Volume Index (BP MOD) 9 ml/m2 8-24 LV EF (BP MOD) 80 % 54-74 LV Diastolic Length (4C) 7.2 cm LV Systolic Length (4C) 6.2 cm LV Stroke Volume (4C MOD) 40 ml Atria Name Value Normal LA Dimensions LA Volume (4C A-L) 25 ml LA Volume (BP A-L) 26 ml RA Dimensions RA Area (4C) 10.2 cm2 <=18.0 Report Signatures
[2024-12-27] MEDS: IPRATROPIUM 0.5 MG/ALBUTEROL SULFATE 2.5 MG AMPUL.NEB 3 ML INHALATION ×4 (01:33→20:01)
[2024-12-27] MEDS: LEVOTHYROXINE SODIUM 112 MCG TABLET PO (05:37)
[2024-12-27] MEDS: methylPREDNISolone SOD SUCC 125 MG VIAL 60 MG IV PUSH ×2 (05:37→13:37)
[2024-12-27 05:49] LABS: Anion Gap 10 mmol/L (4-12); Blood Urea Nitrogen 17 mg/dL (7-17); Calcium 9.9 mg/dL (8.4-10.2); Carbon Dioxide 28 mmol/L (22-30); Chloride 100 mmol/L (98-107); Estimated Glomerular Filt Rate > 60; Glucose 238 mg/dL (65-110); Potassium 3.9 mmol/L (3.4-5.0); Sodium 138 mmol/L (137-145)
[2024-12-27] MEDS: guaiFENesin 12 HR 600 MG TABCR 1200 MG PO ×2 (08:01→20:31)
[2024-12-27] MEDS: NICOTINE (*PBKC) 21 MG PATCH 1 PATCH TRANSDERM (08:01)
[2024-12-27] MEDS: ENOXAPARIN 40 MG/0.4 ML SYRINGE SUB-Q (08:02)
[2024-12-27] MEDS: DOXYCYCLINE 100 MG/NS 100 ML 100 MG/100 ML BAG IVPB ×2 (08:03→20:31)
[2024-12-27] MEDS: PERFLUTREN LIPID MICROSPHERES 1.5 ML VIAL DILUTED TO 10 ML TOTAL VOLUME IV PUSH (08:50)
--- NOTE | 2024-12-27 10:06 | IVDEFINITY ---
Prior to administration of IV Definity the patient was educated on the risks and benefits of the imaging enhancing agent including potential adverse side effects. The patient verbalized understanding. Allergies were verified. No exclusion criteria were identified and at least one of the following inclusion criteria were met: 1) physician request, 2) patient technically difficult to image (per the [place] [employer]ocardi[employer] guidelines of two or more segments not discernable within the apical view), or 3) questionable left ventricular function. ?
--- NOTE | 2024-12-27 10:11 | P.PNIM_ITS ---
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 for cough Scheduled Mucinex D units q.6 hours Methylprednisone 60 mg IV q.6 hr MRSA pending CTA pending encourage oral intake Hypothyroid due to surgical removal thyroid due to cancer Continue home dose levothyroxine Toney syndrome Managed as an outpatient Echo pending DVT prophylaxis Lovenox 40 mg subcutaneous Subjective Date/time seen: 12/27/24 10:11 Interval history: WBC has been increased from 14.4 to 24.9. Possibly due to steroids. Discontinued methylprednisone. Review of Systems Review of Systems: All systems reviewed & are unremarkable except as noted in HPI and below Objective Data Vital Signs Vital Signs: Vital Signs - 24 hr 12/26/24 12:00 12/26/24 14:13 12/26/24 14:20 Temperature 97.3 F L Pulse Rate 82 101 H 77 Respiratory Rate 16 38 H 25 H Blood Pressure 150/70 H 175/94 H Pulse Oximetry 96 98 Oxygen Delivery Room Air Oxygen Flow Rate Fraction of Inspired Oxygen 12/26/24 15:42 12/26/24 16:35 12/26/24 17:02 Temperature Pulse Rate 98 91 Respiratory Rate 24 H 24 H Blood Pressure 149/73 H 134/81 Pulse Oximetry 100 94 95 Oxygen Delivery Nasal Cannula Oxygen Flow Rate 2 Fraction of Inspired Oxygen 12/26/24 17:19 12/26/24 19:51 12/26/24 20:12 Temperature Pulse Rate 97 Respiratory Rate 18 Blood Pressure 134/79 Pulse Oximetry 94 96 95 Oxygen Delivery Room Air Room Air Oxygen Flow Rate Fraction of Inspired Oxygen 12/26/24 20:38 12/26/24 20:40 12/26/24 20:47 Temperature Pulse Rate 107 H 105 H Respiratory Rate 20 20 20 Blood Pressure Pulse Oximetry 97 Oxygen Delivery Room Air Oxygen Flow Rate Fraction of Inspired Oxygen 21 12/26/24 21:03 12/27/24 01:33 12/27/24 01:42 Temperature 97.7 F Pulse Rate 110 H 103 H 100 Respiratory Rate 18 20 20 Blood Pressure 124/58 L Pulse Oximetry 95 Oxygen Delivery Oxygen Flow Rate Fraction of Inspired Oxygen 12/27/24 06:00 12/27/24 09:00 12/27/24 09:00 Temperature 97.8 F Pulse Rate 102 H 98 Respiratory Rate 16 20 Blood Pressure 133/61 Pulse Oximetry 95 96 Oxygen Delivery Room Air Oxygen Flow Rate Fraction of Inspired Oxygen 21 12/27/24 09:08 Temperature Pulse Rate 101 H Respiratory Rate 20 Blood Pressure Pulse Oximetry Oxygen Delivery Oxygen Flow Rate Fraction of Inspired Oxygen Intake/Output Intake/Output: Intake & Output 12/24/24 12/25/24 12/26/24 12/27/24 23:59 23:59 23:59 23:59 Intake Total 200 Output Total 500 1300 Balance -300 -1300 Meds/Results Medications: Active Medications Generic Name Dose Route Start Last Admin Trade Name Freq PRN Reason Stop Dose Admin Acetaminophen 650 mg 12/26/24 15:34 Acetaminophen 325 Mg Tablet PO Q4H PRN Mild Pain (1-3) or Fever Albuterol 2.5 mg 12/26/24 15:34 Albuterol Sulfate Neb 2.5 Mg/3 Ml Inh INHALATION Q4H PRN Shortness Of Breath Albuterol/Ipratropium 3 ml 12/26/24 20:00 12/27/24 09:00 Ipratropium 0.5 Mg/Albuterol Sulfate 2.5 Mg Ampul.Neb 3 Ml INHALATION 3 ml Q6HRT ANAND Administration Benzonatate 100 mg 12/26/24 19:36 12/26/24 20:24 Benzonatate 100 Mg Capsule PO 100 mg TID PRN Administration cough Enoxaparin Sodium 40 mg 12/27/24 09:00 12/27/24 08:02 Enoxaparin 40 Mg/0.4 Ml Syringe SUB-Q 40 mg DAILY ANAND Administration Guaifenesin 1,200 mg 12/26/24 21:00 12/27/24 08:01 Guaifenesin 12 Hr 600 Mg Tabcr PO 1,200 mg Q12HR ANAND Administration Ceftriaxone Sodium 2 gm in 100 mls @ 200 mls/hr 12/26/24 20:00 12/26/24 20:54 Rocephin 2 Gm/Ns 100 Ml IVPB Infused Q24H ANAND Infusion Doxycycline Hyclate 100 mg in 100 mls @ 100 mls/hr 12/26/24 21:00 12/27/24 08:03 Vibramycin 100 Mg/Ns 100 Ml IVPB 100 mls/hr Q12HR ANAND Administration Levothyroxine Sodium 112 mcg 12/27/24 06:30 12/27/24 05:37 Levothyroxine Sodium 112 Mcg Tablet PO 112 mcg DAILY@0630 ANAND Administration Methylprednisolone Sodium Succinate 60 mg 12/26/24 19:00 12/27/24 05:37 Methylprednisolone Sod Succ 125 Mg Vial IV PUSH 60 mg Q6HR ANAND Administration Nicotine 1 patch 12/26/24 15:35 12/27/24 08:01 Nicotine (*Madhu) 21 Mg Patch TRANSDERM 1 patch DAILY ANAND Administration Radiology Results: ITS Impressions Chest X-Ray 12/26/24 12:58 IMPRESSION: 1. No acute cardiopulmonary disease. Chest CTA 12/27/24 10:00 Impression: No evidence of pulmonary embolus, aortic dissection, or aortic aneurysm. Clear lungs. Osseous findings, as above. Labs Labs: Laboratory Results - last 24 hr 12/26/24 12/26/24 12/27/24 13:32 14:08 04:30 WBC 14.4 H RBC 4.72 Hgb 14.6 Hct 44.0 MCV 93.2 MCH 30.9 MCHC 33.2 RDW 14.3 Plt Count 285 MPV 12.3 H Immature Gran % (Auto) 0.8 H Neut % (Auto) 70.5 Lymph % (Auto) 16.9 L Baldwin % (Auto) 5.8 Eos % (Auto) 5.6 H Baso % (Auto) 0.4 Lymph # (Auto) 2.43 Baldwin # (Auto) 0.8 H Eos # (Auto) 0.8 H Baso # (Auto) 0.1 Abs Immat Gran (auto) 0.11 H Absolute Neuts (auto) 10.1 H Absolute Nucleated RBC 0.000 Nucleated RBC % 0.0 PT 12.5 INR 0.9 APTT 27.9 D-Dimer 0.45 Sodium 139 138 Potassium 4.2 3.9 Chloride 106 100 Carbon Dioxide 26 28 Anion Gap 7 10 BUN 8 17 Creatinine 0.59 L 0.70 Estim Creat Clear Calc Not Reportable Not Reportable Estimated GFR > 60 > 60 Glucose 108 238 H Calcium 9.4 9.9 Magnesium 1.9 Total Bilirubin 0.5 AST 27 ALT 27 Alkaline Phosphatase 100 Troponin I < 0.012 NT-Pro-B Natriuret Pep 73 Total Protein 8.0 Albumin 4.3 Influenza A (RT-PCR) Negative Influenza B (RT-PCR) Negative RSV (RT-PCR) Negative SARS-CoV-2 RNA (RT-PCR) Negative Hospitalist [facility] Advance Care Plan I have confirmed that the patient's Advanced Care Plan is present, code status is documented, or surrogate decision maker is listed in patient medical record.: Yes Medication Reconciliation I have utilized all available resources to obtain, update and review the patients current medications (includes all prescriptions, OTC, herbals, cannabis, and nutritional supplements).: Yes
[2024-12-27 10:21] LABS: Hematocrit 45.5 % (37.0-47.0); Hemoglobin 14.8 g/dL (12.0-15.0); Immature Platelet Fraction Pct 15.3 % (0.9-11.2); Mean Corpuscular HGB Conc 32.5 g/dl (32-36); Mean Corpuscular Hemoglobin 30.8 pg (26-34); Mean Corpuscular Volume 94.8 fl (80-100); Mean Platelet Volume 13.7 fl (7.4-10.4); Platelet Count Result 294 k/mm3 (150-375); Red Cell Distribution Width 14.1 % (11.5-14.5); White Blood Count 24.9 K/mm3 (4.5-10.0)
[2024-12-27 10:31] LABS: Alanine Aminotransferase 36 U/L (6-35); Albumin Level 4.3 g/dL (3.5-5.1); Alkaline Phosphatase 96 U/L (38-126); Aspartate Amino Transferase 31 U/L (14-36); Bilirubin,Total 0.2 mg/dL (0.2-1.3)
[2024-12-27] MEDS: ACETAMINOPHEN 325 MG TABLET 650 MG PO ×2 (14:51→20:30)
[2024-12-27] MEDS: IBUPROFEN 400 MG TABLET PO (17:01)
[2024-12-27] MEDS: cefTRIAXone 2 GM/NS 100 ML 2 GM/100 ML BAG IVPB (20:31)
[2024-12-27] MEDS: BENZONATATE 100 MG CAPSULE PO (20:31)
[2024-12-28] VITALS (13 sets, daily range): BP systolic 125–145; BP diastolic 64–67; PULSE 71–102; RESP 14–20; TEMP 36.4; O2SAT 94–99
[2024-12-28] MEDS: IPRATROPIUM 0.5 MG/ALBUTEROL SULFATE 2.5 MG AMPUL.NEB 3 ML INHALATION ×4 (02:09→21:15)
[2024-12-28 05:27] LABS: Hemoglobin 12.9 g/dL (12.0-15.0); Mean Corpuscular HGB Conc 32.3 g/dl (32-36); Mean Corpuscular Volume 96.2 fl (80-100); Mean Platelet Volume 13.1 fl (7.4-10.4); Platelet Count Result 274 k/mm3 (150-375); Red Blood Count 4.16 M/mm3 (4.2-5.4); Red Cell Distribution Width 14.4 % (11.5-14.5); White Blood Count 34.7 K/mm3 (4.5-10.0)
[2024-12-28] MEDS: LEVOTHYROXINE SODIUM 112 MCG TABLET PO (05:34)
[2024-12-28 05:38] LABS: Alanine Aminotransferase 26 U/L (6-35); Alkaline Phosphatase 77 U/L (38-126); Anion Gap 9 mmol/L (4-12); Aspartate Amino Transferase 23 U/L (14-36); Bilirubin,Total 0.2 mg/dL (0.2-1.3); Blood Urea Nitrogen 17 mg/dL (7-17); Carbon Dioxide 24 mmol/L (22-30); Chloride 107 mmol/L (98-107); Estimated Glomerular Filt Rate > 60; Glucose 126 mg/dL (65-110); Potassium 3.8 mmol/L (3.4-5.0); Sodium 140 mmol/L (137-145)
[2024-12-28] MEDS: guaiFENesin 12 HR 600 MG TABCR 1200 MG PO ×2 (08:58→20:24)
[2024-12-28] MEDS: NICOTINE (*PBKC) 21 MG PATCH 1 PATCH TRANSDERM (08:59)
[2024-12-28] MEDS: ENOXAPARIN 40 MG/0.4 ML SYRINGE SUB-Q (08:59)
[2024-12-28] MEDS: DOXYCYCLINE 100 MG/NS 100 ML 100 MG/100 ML BAG IVPB ×2 (08:59→20:23)
--- NOTE | 2024-12-28 14:26 | P.PNIM_ITS ---
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 for cough Scheduled Mucinex D units q.6 hours Methylprednisone 60 mg IV q.6 hr MRSA pending CTA pending encourage oral intake Hypothyroid due to surgical removal thyroid due to cancer Continue home dose levothyroxine Toney syndrome Managed as an outpatient Leukocytosis likely reactive in nature remains afebrile no signs of infectious process Monitor BC continue ceftriaxone and doxycycline Echo: The left ventricular ejection fraction is visually estimated to be greater than 70%. DVT prophylaxis Lovenox 40 mg subcutaneous Subjective Date/time seen: 12/28/24 14:26 Interval history: Patient had leukocytosis. No evidence of infection. Patient is currently on room air and saturating well. No evidence of fever, low BP, diarrhea or other infectious process. Review of Systems Review of Systems: All systems reviewed & are unremarkable except as noted in HPI and below Exam Narrative: General appearance: Well-developed, well-nourished Skin: Normal color Head: Normocephalic, nontraumatic Eyes: Clear conjunctiva ENT: Oropharynx normal, ears normal, nose normal Neck: Supple, nontender Chest and respiratory: Airway patent, labored breathing, diminution of air entry bilaterally, scattered wheezing and rhonchi bilaterally Heart: Tachycardia Abdomen: Soft, nontender, no organomegaly, quiet bowel sounds Vascular: Normal peripheral pulses, normal capillary refill. Musculoskeletal: Normal range of motion, nontender back Neurologic: Alert and oriented ?3, CORPORATE COMPLIANCE DIRECTOR is normal as tested, no gross motor deficit Objective Data Vital Signs Vital Signs: Vital Signs - 24 hr 12/27/24 14:52 12/27/24 20:00 12/27/24 20:01 Temperature 98.1 F Pulse Rate 112 H 113 H Respiratory Rate 20 16 Blood Pressure 149/60 H Pulse Oximetry 96 Oxygen Delivery Room Air Fraction of Inspired Oxygen 12/27/24 20:06 12/27/24 20:13 12/27/24 20:14 Temperature 98.2 F Pulse Rate 63 113 H Respiratory Rate 20 16 Blood Pressure 142/50 H Pulse Oximetry 99 100 Oxygen Delivery Room Air Fraction of Inspired Oxygen 21 12/28/24 02:09 12/28/24 02:19 12/28/24 05:08 Temperature 97.6 F Pulse Rate 102 H 102 H 74 Respiratory Rate 16 16 20 Blood Pressure 125/67 Pulse Oximetry 97 Oxygen Delivery Fraction of Inspired Oxygen 12/28/24 08:47 12/28/24 08:47 12/28/24 08:52 Temperature Pulse Rate 96 101 H Respiratory Rate 14 14 Blood Pressure Pulse Oximetry 97 Oxygen Delivery Room Air Fraction of Inspired Oxygen 21 12/28/24 09:00 12/28/24 13:47 12/28/24 13:51 Temperature Pulse Rate 92 95 Respiratory Rate 16 16 Blood Pressure Pulse Oximetry 99 Oxygen Delivery Room Air Fraction of Inspired Oxygen Intake/Output Intake/Output: Intake & Output 12/25/24 12/26/24 12/27/24 12/28/24 23:59 23:59 23:59 23:59 Intake Total 200 1740 1162 Output Total 500 2250 Balance -300 -510 1162 Meds/Results Medications: Active Medications Generic Name Dose Route Start Last Admin Trade Name Freq PRN Reason Stop Dose Admin Acetaminophen 650 mg 12/26/24 15:34 12/27/24 20:30 Acetaminophen 325 Mg Tablet PO 650 mg Q4H PRN Administration Mild Pain (1-3) or Fever Albuterol 2.5 mg 12/26/24 15:34 Albuterol Sulfate Neb 2.5 Mg/3 Ml Inh INHALATION Q4H PRN Shortness Of Breath Albuterol/Ipratropium 3 ml 12/26/24 20:00 12/28/24 13:46 Ipratropium 0.5 Mg/Albuterol Sulfate 2.5 Mg Ampul.Neb 3 Ml INHALATION 3 ml Q6HRT ANAND Administration Benzonatate 100 mg 12/26/24 19:36 12/27/24 20:31 Benzonatate 100 Mg Capsule PO 100 mg TID PRN Administration cough Enoxaparin Sodium 40 mg 12/27/24 09:00 12/28/24 08:59 Enoxaparin 40 Mg/0.4 Ml Syringe SUB-Q 40 mg DAILY ANAND Administration Guaifenesin 1,200 mg 12/26/24 21:00 12/28/24 08:58 Guaifenesin 12 Hr 600 Mg Tabcr PO 1,200 mg Q12HR ANAND Administration Ceftriaxone Sodium 2 gm in 100 mls @ 200 mls/hr 12/26/24 20:00 12/27/24 21:01 Rocephin 2 Gm/Ns 100 Ml IVPB Infused Q24H ANAND Infusion Doxycycline Hyclate 100 mg in 100 mls @ 100 mls/hr 12/26/24 21:00 12/28/24 10:00 Vibramycin 100 Mg/Ns 100 Ml IVPB Infused Q12HR ANAND Infusion Ibuprofen 400 mg 12/27/24 14:56 12/27/24 17:01 Ibuprofen 400 Mg Tablet PO 400 mg Q6H PRN Administration Pain Rated 4-6 Levothyroxine Sodium 112 mcg 12/27/24 06:30 12/28/24 05:34 Levothyroxine Sodium 112 Mcg Tablet PO 112 mcg DAILY@0630 ANAND Administration Nicotine 1 patch 12/26/24 15:35 12/28/24 13:23 Nicotine (*Madhu) 21 Mg Patch TRANSDERM 1 patch DAILY ANAND Administration Radiology Results: ITS Impressions Chest X-Ray 12/26/24 12:58 IMPRESSION: 1. No acute cardiopulmonary disease. Chest CTA 12/27/24 10:00 Impression: No evidence of pulmonary embolus, aortic dissection, or aortic aneurysm. Clear lungs. Osseous findings, as above. Labs Labs: Laboratory Results - last 24 hr 12/28/24 04:45 WBC 34.7 H RBC 4.16 L Hgb 12.9 Hct 40.0 MCV 96.2 MCH 31.0 MCHC 32.3 RDW 14.4 Plt Count 274 MPV 13.1 H % Immature Plt Fraction 14.0 H Sodium 140 Potassium 3.8 Chloride 107 Carbon Dioxide 24 Anion Gap 9 BUN 17 Creatinine 0.73 Estim Creat Clear Calc Not Reportable Estimated GFR > 60 Glucose 126 H Calcium 9.0 Total Bilirubin 0.2 AST 23 ALT 26 Alkaline Phosphatase 77 Total Protein 7.0 Albumin 4.0 Hospitalist [facility] Advance Care Plan I have confirmed that the patient's Advanced Care Plan is present, code status is documented, or surrogate decision maker is listed in patient medical record.: Yes Medication Reconciliation I have utilized all available resources to obtain, update and review the patients current medications (includes all prescriptions, OTC, herbals, cannabis, and nutritional supplements).: Yes
[2024-12-28] MEDS: cefTRIAXone 2 GM/NS 100 ML 2 GM/100 ML BAG IVPB (20:23)
[2024-12-28] MEDS: ACETAMINOPHEN 325 MG TABLET 650 MG PO (20:24)
[2024-12-28] MEDS: hydrOXYzine HCL 25 MG TABLET PO (20:24)
[2024-12-28] MEDS: BENZONATATE 100 MG CAPSULE PO (20:25)
[2024-12-29 02:31] VITALS: PULSE 75; RESP 16
[2024-12-29] MEDS: IPRATROPIUM 0.5 MG/ALBUTEROL SULFATE 2.5 MG AMPUL.NEB 3 ML INHALATION ×2 (02:31→07:51)
[2024-12-29 02:38] VITALS: PULSE 78; RESP 16
[2024-12-29 04:57] VITALS: BP 126/61; PULSE 86; RESP 16; TEMP 36.3; O2SAT 95
[2024-12-29 05:38] LABS: Hematocrit 41.7 % (37.0-47.0); Hemoglobin 13.2 g/dL (12.0-15.0); Mean Corpuscular HGB Conc 31.7 g/dl (32-36); Mean Corpuscular Hemoglobin 30.3 pg (26-34); Mean Corpuscular Volume 95.6 fl (80-100); Mean Platelet Volume 13.2 fl (7.4-10.4); Platelet Count Result 254 k/mm3 (150-375); Red Blood Count 4.36 M/mm3 (4.2-5.4); Red Cell Distribution Width 14.5 % (11.5-14.5); White Blood Count 12.1 K/mm3 (4.5-10.0)
[2024-12-29 05:51] LABS: Alanine Aminotransferase 43 U/L (6-35); Albumin Level 3.5 g/dL (3.5-5.1); Alkaline Phosphatase 75 U/L (38-126); Anion Gap 8 mmol/L (4-12); Aspartate Amino Transferase 36 U/L (14-36); Bilirubin,Total 0.2 mg/dL (0.2-1.3); Blood Urea Nitrogen 18 mg/dL (7-17); Calcium 8.3 mg/dL (8.4-10.2); Carbon Dioxide 24 mmol/L (22-30); Chloride 108 mmol/L (98-107); Estimated Glomerular Filt Rate > 60; Glucose 96 mg/dL (65-110); Potassium 4.2 mmol/L (3.4-5.0); Sodium 140 mmol/L (137-145); Total Protein 6.4 g/dL (6.3-8.2)
[2024-12-29] MEDS: LEVOTHYROXINE SODIUM 112 MCG TABLET PO (06:05)
[2024-12-29 07:50] VITALS: PULSE 78; RESP 16
[2024-12-29 08:00] VITALS: PULSE 76; RESP 16; O2SAT 97
--- NOTE | 2024-12-29 08:10 | P.DS_ITS ---
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 for cough Scheduled Mucinex D units q.6 hours Methylprednisone 60 mg IV q.6 hr MRSA pending CTA pending encourage oral intake Hypothyroid due to surgical removal thyroid due to cancer Continue home dose levothyroxine Toney syndrome Managed as an outpatient Leukocytosis likely reactive in nature remains afebrile no signs of infectious process Monitor BC continue ceftriaxone and doxycycline Echo: The left ventricular ejection fraction is visually estimated to be greater than 70%. DVT prophylaxis Lovenox 40 mg subcutaneous DS: Summary Hospital Course Hospital Course: 54 F with PMHx chronic smoker, thyroid cancer (removed thyroid) Toney syndrome, bronchitis HTN, HLD, visited ED for SOB. During the evaluation patient reports she had increased work of breathing and cough for past few days. Patient reports she lives in [place], [place] and follows up with PCP and Cardiology. Of note patient reports that she had echocardiogram 5 years ago which showed pericardial effusion but never followed up. She reports that she has oncoming echocardiogram on December [id number]. Pertinent ED labs: WBC 14.4, HgB 14.6, platelet 285, sodium 139, potassium 4.2, creatinine 0.59 COVID RSV flu negative Patient is admitted in the setting of COPD exacerbation. Patient is a chronic smoker. Encouraged smoking cessation. Will order echocardiogram to rule out CHF and also ordered CTA to rule out PE since patients with Down syndrome are hypercoagulable state. Of note patient has a history of thyroid cancer which was removed 3 years ago and currently treated with levothyroxine. Patient was started on methylprednisone in the ED and later was discontinued due to rising WBC. Patient had leukocytosis. No evidence of infection. Patient is currently on room air and saturating well. No evidence of fever, low BP, diarrhea or other infectious process. During the admission patient was performed CTA and no evidence of pulmonary embolism, aortic dissection or aortic aneurysm. Patient WBC has decreased from 34.7 to 12.1. The rise in leukocytes the possibly due to leukomoid reaction. Patient will be discharged with levofloxacin for 5 days Status at Discharge Cognitive/behavioral status at discharge: Stable Time Spent with Patient Time attestation: Total time spent providing and/or coordinating discharge services: 45 minutes Exam Narrative: General appearance: Well-developed, well-nourished Skin: Normal color Head: Normocephalic, nontraumatic Eyes: Clear conjunctiva ENT: Oropharynx normal, ears normal, nose normal Neck: Supple, nontender Chest and respiratory: Airway patent, labored breathing, diminution of air entry bilaterally, scattered wheezing and rhonchi bilaterally Heart: Tachycardia Abdomen: Soft, nontender, no organomegaly, quiet bowel sounds Vascular: Normal peripheral pulses, normal capillary refill. Musculoskeletal: Normal range of motion, nontender back Neurologic: Alert and oriented ?3, DATA MANAGEMENT CONSULTANT is normal as tested, no gross motor deficit DS: Data Data Completed and Pending Labs on day of discharge: Labs from last 24 hours 12/29/24 04:42 WBC 12.1 H RBC 4.36 Hgb 13.2 Hct 41.7 MCV 95.6 MCH 30.3 MCHC 31.7 L RDW 14.5 Plt Count 254 MPV 13.2 H Sodium 140 Potassium 4.2 Chloride 108 H Carbon Dioxide 24 Anion Gap 8 BUN 18 H Creatinine 0.72 Estim Creat Clear Calc Not Reportable Estimated GFR > 60 Glucose 96 Calcium 8.3 L Total Bilirubin 0.2 AST 36 ALT 43 H Alkaline Phosphatase 75 Total Protein 6.4 Albumin 3.5 Imaging Radiologist's impression: ITS Impressions Chest X-Ray 12/26/24 12:58 IMPRESSION: 1. No acute cardiopulmonary disease. Chest CTA 12/27/24 10:00 Impression: No evidence of pulmonary embolus, aortic dissection, or aortic aneurysm. Clear lungs. Osseous findings, as above. Discharge Plan Discharge Attending physician on discharge: Tacho Kilgore Discharging Clinician: Tacho Kilgore Anticipated Discharge Date/Time: 12/29/24 08:36 Patient Disposition: Home Activity: as tolerated Diet: as tolerated Discharge Instructions: Advised on smoking cessation Please take care Check blood pressure 1 to 2 times a day. Record and bring into your doctor for review. Call your doctor if your blood pressure is greater than 180/110 or less than 90/45. Walk with cane or other assist device. Take precautions to avoid falls. Rise slowly from a lying or sitting position. Pause before standing or walking. Contact your doctor or call 911 and come to the Emergency Room if you have any type of trauma, lightheadedness with standing or other worrisome symptoms. Avoid NSAIDs (ibuprofen, naproxen, Aleve). Tylenol is safe to take. Follow-up with your primary care provider in 1-2 weeks. Please call for appointment. Follow-up with Cardiology in 2-4 weeks. Please call for an appointment. Thank you for using [facility] for your health care needs. Patient Instructions: Antibiotic Form Patient Language: Niuean Stand Alone Forms: General Discharge Information Follow-up/Referrals: PHYSICIAN NOT ON STAFF,NONSTAFF [Primary Care Provider] - Discharge Medications: New nicotine [Nicoderm CQ] 21 mg/24 hr Patch 24 Hour 1 patch transdermal DAILY Qty: 30 0RF guaifenesin [Mucus Relief ER] 600 mg Tablet Extended Release 12hr 1,200 mg PO Q12HR Qty: 30 0RF levofloxacin 750 mg tablet 750 mg PO DAILY Qty: 5 0RF budesonide-formoterol 80-4.5 mcg/actuation HFA aerosol inhaler 2 puff inhalation Q12H Qty: 10.2 5RF Continued levothyroxine [Euthyrox] 112 mcg tablet 112 mcg PO DAILY ibuprofen [IBU] 800 mg tablet 800 mg PO TID PRN (Reason: pain) benzonatate 100 mg capsule 100 mg PO TID PRN (Reason: cough) albuterol 90 mcg/actuation aerosol 90 mcg inhalation QID PRN (Reason: shortness of breath) Date of admission: 12/28/24 11:03 Primary Care Provider: PHYSICIAN NOT ON STAFF,NONSTAFF Admitting Provider: Madi Marcano Attending physician on admission: Madi Marcano Condition: Stable
--- NOTE | 2024-12-29 08:14 | P.CDI_ITS ---
CDI Query Clarification Request Please specify type and acuity of heart failure if known. * Acute * Chronic * Acute on Chronic * Unknown * Systolic * Diastolic * Combined Systolic and Diastolic * Unknown The medica chart reflects the followin54 years old white female came with shortness of breath which been going for the last 2 months. Patient is scheduled to be seen by fourdrinier machine tender this month. Patient from [facility] he came over to visit, shortness of breath got worse 1 week ago, worse with any activity, nothing make it better. Patient is tobacco dependent, hypertension, hyperlipidemia, history of edema lower extremities. Currently on Lasix. Patient is admitted in the setting of COPD exacerbation. Patient is a chronic smoker. Encouraged smoking cessation. Will order echocardiogram to rule out CHF and also ordered CTA to rule out PE since patients with Down syndrome are hypercoagulable state. Of note patient has a history of thyroid cancer which was removed 3 years ago and currently treated with levothyroxine. ECHO: Summary 1. The left ventricle is normal in size with hyperdynamic systolic function. The left ventricular ejection fraction is visually estimated to be greater than 70%. 2. The right ventricle is normal in size and systolic function. 3. There is small pericardial effusion. IV lasix 40 mg x1 stat <Melina Borja RN - Last Filed: 12/29/24 08:18> Clarified Diagnosis Clarified Diagnosis: Systolic <Tacho Kilgore MD - Last Filed: 12/29/24 17:40>
[2024-12-29] MEDS: guaiFENesin 12 HR 600 MG TABCR 1200 MG PO (08:26)
[2024-12-29] MEDS: NICOTINE (*PBKC) 21 MG PATCH 1 PATCH TRANSDERM (08:26)
[2024-12-29] MEDS: ENOXAPARIN 40 MG/0.4 ML SYRINGE SUB-Q (08:27)
== END 2024-12-29 14:00 | disposition home or self-care (01) | DRG 140 ==
LOC: ANHED 15:01 → ANH2MED 17:01
PROVIDERS: Admitting Provider Internal Medicine; Emergency Provider Emergency Medicine; Visit Provider General Practice
DX: J44.1 Chronic obstructive pulmonary disease with (acute) exacerbation (principal); J44.0 Chronic obstructive pulmonary disease with (acute) lower respiratory infection; J18.9 Pneumonia, unspecified organism; Z20.822 Contact with and (suspected) exposure to COVID-19; F17.210 Nicotine dependence, cigarettes, uncomplicated; Q96.9 Turner's syndrome, unspecified; E78.5 Hyperlipidemia, unspecified; I10 Essential (primary) hypertension; E89.0 Postprocedural hypothyroidism; Z85.850 Personal history of malignant neoplasm of thyroid
CPT/HCPCS: 36415; 71045; 71275; 80048; 80053; 80076; 83735; 83880; 84484; 85025; 85027; 85055; 85380; 85610; 85730; 87040; 87637; 93005; 94640; 96365; 96366; 96367; 96372; 96374; 96375; 96376; 99285; A9270; C8929; G0378; J0696; J1650; J1938; J2919; Q9957; Q9967